=== PATIENT | male | born 1940 | race Caucasian/White ===

== ENCOUNTER → 2018-09-02 15:19 | Outpatient (CLI) | payer MEDICARE, SELFPAY ==
--- NOTE | 2018-09-02 | DI.RAD.S_ITS ---
PROCEDURE: XR KNEE RT 3V INDICATIONS: KNEE PAIN TECHNIQUE: 3 views of the knee were acquired. COMPARISON: None. FINDINGS: Bones: No fractures or dislocations. No suspicious bony lesions. There is severe right knee joint degeneration with disc narrowing, subchondral sclerosis and osteophyte formation, most pronounced in the medial femorotibial compartment and patellofemoral compartment. Soft tissues: Small joint effusion. No suspicious soft tissue calcifications. IMPRESSION: Severe degenerative joint disease. Dictated by: Leslye Lorenz M.D. on 09/02/2018 at 16:30 Approved by: Leslye Lorenz M.D. on 09/02/2018 at 16:31
--- NOTE | 2018-09-02 | DI.RAD.S_ITS ---
PROCEDURE: XR KNEE LT 3V INDICATIONS: KNEE PAIN TECHNIQUE: 3 views of the knee were acquired. COMPARISON: None. FINDINGS: Bones: No fractures or dislocations. No suspicious bony lesions. Severe knee joint degeneration, most pronounced in the medial femorotibial compartment. Soft tissues: Trace joint effusion. No suspicious soft tissue calcifications. IMPRESSION: Severe degenerative joint disease. Dictated by: Leslye Lorenz M.D. on 09/02/2018 at 16:31 Approved by: Leslye Lorenz M.D. on 09/02/2018 at 16:32
== END ==
PROVIDERS: PCP Internal Medicine; Visit Provider Internal Medicine
DX: M25.561 Pain in right knee (principal); M25.562 Pain in left knee; M17.0 Bilateral primary osteoarthritis of knee
CPT/HCPCS: 73562

== ENCOUNTER 2019-01-07 20:22 | Emergency (ER) | payer MEDICARE, SELFPAY ==
[2019-01-07 20:25] VITALS: BP 144/70; PULSE 55; RESP 20; TEMP 37.2; O2SAT 94
--- NOTE | 2019-01-07 21:02 | DI.RAD.S_ITS ---
PROCEDURE: XR TOE RT MIN 2V INDICATIONS: pain, swelling, redness 4TH DIGIT TECHNIQUE: 3 views of the 4th toe(s) acquired. COMPARISON: None. FINDINGS: Bones: No fractures or dislocations. There is bony erosion at the fourth distal and proximal interphalangeal joints consistent with gouty arthritis. There is generalized osteopenia. Soft tissues: No suspicious soft tissue densities. They show swelling of the fourth toe. IMPRESSION: 1. Gouty arthritis of the fourth toe. 2. Osteopenia. Dictated by: Leslye Lorenz M.D. on 01/07/2019 at 22:10 Approved by: Leslye Lorenz M.D. on 01/07/2019 at 22:13
--- NOTE | 2019-01-07 21:05 | ED_ITS ---
HPI - Extremity Problem General Chief complaint: Extremity Problem,Nontraumatic Stated complaint: pain and swelling both feet Time Seen by Provider: 01/07/19 20:40 Source: patient and family Mode of arrival: ambulatory Limitations: no limitations History of Present Illness HPI Narrative: 78-year-old male nonsmoker presents with his in the chief complaint of mild swelling of his bilateral lower extremities and a painful, red right 4th toe in the absence of injury. He had a similar episode a few weeks ago which seemed to respond well to Keflex but it has returned. He denies systemic findings such as chest pain or shortness of breath, exertional dyspnea or orthopnea. He denies fever, chills nor nausea or vomiting. He denies any specific or known injury, increased activity or new shoes. MD Complaint: extremity pain and extremity swelling Onset (ago): day(s) Pain Consistency: constant Location: right Quality: burning Radiation: none Relieving factors: nothing Exacerbating factors: nothing Associated symptoms: denies other symptoms Related Data Home Medications Medication Instructions Recorded Confirmed colchicine 0.6 mg PO QDAY #0 07/01/16 Previous Rx's Medication Instructions Recorded ACETAMINOPHEN 0 mg PO Q4HP PRN #30 07/10/16 enoxaparin [Lovenox] 40 mg SQ QDAY #7 07/10/16 hydrocodone-acetaminophen [[place]] 1 - 2 tab PO Q4HP PRN #60 tab 07/10/16 hydroxyzine pamoate 0 mg PO Q4HP PRN #30 cap 07/10/16 levothyroxine 25 mcg PO QDAY@0600 #30 07/10/16 doxycycline hyclate 100 mg PO BID #20 tab 01/07/19 indomethacin 50 mg PO TID PRN #20 cap 01/07/19 Allergies Allergy/AdvReac Type Severity Reaction Status Date / Time iodine [IODINE] Allergy Severe IV Unverified 10/07/17 13:08 CONTRAST-ALMOST QUIT BREATHING Review of Systems Constitutional Denies chills, Denies fever(s), Denies lethargy and Denies weakness Eyes Denies change in vision, Denies eye discharge, Denies irritation and Denies loss of vision ENT Ears, Nose, Mouth, and Throat: Denies change in voice, Denies neck pain and Denies sore throat Cardiovascular Denies chest pain, Denies irregular heart rhythm, Reports leg edema, Denies lightheadedness, Denies palpitations, Denies dyspnea, Denies dyspnea on exertion and Denies orthopnea Respiratory Denies cough, Denies dyspnea, Denies dyspnea on exertion and Denies wheezing Gastrointestinal Gastrointestinal: Denies abdominal pain, Denies change in bowel habits, Denies diarrhea, Denies nausea and Denies vomiting Genitourinary Denies hematuria, Denies flank pain, Denies urinary incontinence and Denies urinary urgency Musculoskeletal Denies neck pain Integumentary/Breasts Denies pruritus, Reports erythema, Denies rash, Reports skin pain, Reports skin swelling and Denies wounds Neurologic Denies confusion, Denies loss of vision and Denies weakness Psychiatric Denies anxiety, Denies confusion, Denies depression, Denies homicidal ideation and Denies suicidal ideation Endocrine Denies palpitations Hematologic/Lymphatic Denies easy bruising Allergic/Immunologic Denies wheezing PFSH Social History Smoking Status: Former smoker Social History Smoking Status: Former smoker Exam Narrative Exam Narrative: GEN: AOx3 and in mild distress EYES: Pupils are equal, round, and reactive to light and accommodation. Extraoccular muscles are intact bilaterally. There is no subconjunctival hemorrhage or exudate. CHEST: Lungs are clear to auscultation bilaterally and free of wheezes, rales, or rhonchi. Heart rate is regular rhythm, there are no murmurs, clicks, rubs, or gallops. There is no chest wall tenderness. ABD: Abdomen is soft and nontender. There is no guarding or rebound. Bowel sounds are normal in all 4 quadrants. There is no mass or organomegaly. EXT: Mild swelling with significant erythema and tenderness of R 4th toe. No drainage, no lymphangitis. No involvement of the foot Full painless ROM of all extremities with no loss of sensation or strength. SKIN: Redness, warmth and tenderness to right 4th toe consistent with cellulitis Initial Vital Signs Initial Vital Signs: Vital Signs Temperature 98.9 F 01/07/19 20:25 Pulse Rate 55 L 01/07/19 20:25 Respiratory Rate 20 01/07/19 20:25 Blood Pressure 144/70 H 01/07/19 20:25 Pulse Oximetry 94 01/07/19 20:25 Course Orders Ordered: ED Orders 07/12/19 21:02 XR toe RT min 2V Stat 01/07/19 21:15 B Type Natriuretic Peptide Stat Basic Metabolic Panel Stat C-Reactive Protein Quant Stat Complete Blood Count AUTO DIFF Stat Erythrocyte Sedimentation Rate Stat Uric Acid Stat Discontinued Medications Doxycycline Hyclate (Vibramycin) 100 mg PO NOW ONE Stop: 01/07/19 21:04 Last Admin: 01/07/19 21:25 Dose: 100 mg Vital Signs - 8 hr 01/07/19 23:01 Temperature 98.2 F Pulse Rate 50 L Respiratory Rate 16 Blood Pressure 137/50 L Pulse Oximetry 95 MDM - Extremity (Nontraumatic) Lab Data Result diagrams: 01/07/19 21:15 01/07/19 21:15 Lab Results 01/07/19 01/07/19 01/07/19 Range/Units 21:15 21:15 21:15 WBC 11.3 H (4.5-11.0) X10^3/uL RBC 4.77 (4.5-5.9) X10^6/uL Hgb 14.4 (13.5-17.5) g/dL Hct 42.5 (41-53) % MCV 89.2 (80-100) fL MCH 30.1 (26-34) PG MCHC 33.7 (30-36) % RDW 12.8 (11.6-14.8) % Plt Count 204 (150-400) X10^3/uL Neut % (Auto) 70.4 (50-75) % Lymph % (Auto) 20.1 L (25-40) % [place] % (Auto) 7.7 (3-14) % Eos % (Auto) 1.2 L (2-4) % Baso % (Auto) 0.6 (0-2) % Neut # (Auto) 7900 H (1456-6317) /uL Lymph # (Auto) 2300 (8568-7174) /uL [place] # (Auto) 900 (0-900) /uL Eos # (Auto) 100 (0-450) /uL Baso # (Auto) 100 (0-100) /uL ESR 18 H (0-15) MM/HR Sodium 142 (137-145) mmol/L Potassium 3.8 (3.4-5.1) mmol/L Chloride 107 (98-107) mmol/L Carbon Dioxide 24 (22-32) mmol/L BUN 18 (9-20) mg/dL Creatinine 1.20 (0.66-1.25) mg/dL Estimated GFR 58.9 L (>60) mL/min BUN/Creatinine Ratio 15.0 (6-22) Glucose 124 H (80-110) mg/dL Uric Acid 8.6 H (3.5-8.5) mg/dL Calcium 9.5 (8.4-10.2) mg/dL C-Reactive Protein 4.4 H (<1.0) mg/dL B-Natriuretic Peptide < 100 (<100) Imaging Data Toe Xray: Radiologist's impression: [address] [address] XRay Report Signed Patient: Gurpreet Newton LMR#: [id number] : 2Acct:[id number] Age/Sex: 78 / MDate of Service: 01/07/19 Loc: ED Accession Number: [id number] Procedure: XR toe RT min 2V Ordering Provider: Estevan Patton D.O. PROCEDURE: XR TOE RT MIN 2V INDICATIONS: pain, swelling, redness 4TH DIGIT TECHNIQUE: 3 views of the 4th toe(s) acquired. COMPARISON: None. FINDINGS: Bones: No fractures or dislocations. There is bony erosion at the fourth distal and proximal interphalangeal joints consistent with gouty arthritis. There is generalized osteopenia. Soft tissues: No suspicious soft tissue densities. They show swelling of the fourth toe. IMPRESSION: 1. Gouty arthritis of the fourth toe. 2. Osteopenia. Dictated by: Leslye Lorenz M.D. on 01/07/2019 at 22:10 Approved by: Leslye Lorenz M.D. on 01/07/2019 at 22:13 Discharge Plan Departure Patient Disposition: Home Clinical Impression: Cellulitis of fourth toe Qualifiers: Laterality: right Qualified Code(s): L03.031 - Cellulitis of right toe Gout Qualifiers: Gout site: toe Gout etiology: unspecified cause Chronicity: acute Laterality: right Qualified Code(s): M10.9 - Gout, unspecified Discharge Date/Time: 01/07/19 23:03 Interventions: ED Discharge Assessment Last Done: 01/07/19 23:01 Instructions: DI for Cellulitis -- Adult, DI for Gout Activity Restrictions/Additional Instructions: *You have been diagnosed with [cellulitis versus gouty arthritis of right 4th toe] *What to do: *Take medications as directed *Follow up with your primary care provider in 2-3 days, call for an appointment. Let them know you were seen in the Emergency Department and that we ask that you be seen in follow up *Return to ER if you should have any new, worsening or concerning symptoms, such as [ ] Prescriptions: New indomethacin 50 mg capsule 50 mg PO TID PRN (Reason: pain (scale score 7-10)) Qty: 20 RF: 0 doxycycline hyclate 100 mg tablet 100 mg PO BID Qty: 20 RF: 0 No Action colchicine 0.6 MG capsule 0.6 mg PO QDAY Qty: 0 RF: 0 ACETAMINOPHEN PO Q4HP PRNQty: 30 RF: 0 hydroxyzine pamoate 25 MG capsule PO Q4HP PRNQty: 30 RF: 0 enoxaparin [Lovenox] 40 MG/0.4 ML syringe 40 mg SQ QDAY Qty: 7 RF: 0 levothyroxine 25 MCG tablet 25 mcg PO QDAY@0600 Qty: 30 RF: 0 hydrocodone-acetaminophen [[place]] 5 MG/325 MG tablet 1 - 2 tab PO Q4HP PRNQty: 60 RF: 0 Referrals: Higinio Barrientos MD [Primary Care Provider] -
[2019-01-07 21:25] LABS: Add Manual Diff / Slide Review NO; Basophils Absolute Auto 100 /uL (0-100); Basophils Percent Auto 0.6 % (0-2); Eosinophils Absolute Auto 100 /uL (0-450); Eosinophils Percent Auto 1.2 % (2-4); Hematocrit 42.5 % (41-53); Hemoglobin 14.4 g/dL (13.5-17.5); Lymphocytes Absolute Auto 2300 /uL (1100-4500); Lymphocytes Percent Auto 20.1 % (25-40); Mean Corpuscular HGB Conc 33.7 % (30-36); Mean Corpuscular Hemoglobin 30.1 PG (26-34); Mean Corpuscular Volume 89.2 fL (80-100); Monocytes Absolute Auto 900 /uL (0-900); Monocytes Percent Auto 7.7 % (3-14); Neutrophils Absolute Auto 7900 /uL (1500-7000); Neutrophils Percent Auto 70.4 % (50-75); Platelet Count 204 X10^3/uL (150-400); Red Blood Cell Count 4.77 X10^6/uL (4.5-5.9); Red Cell Distribution Width 12.8 % (11.6-14.8); White Blood Cell Count 11.3 X10^3/uL (4.5-11.0)
[2019-01-07] MEDS: DOXYCYCLINE HYCLATE 100 MG TABLET PO (21:25)
[2019-01-07 21:36] LABS: Blood Urea Nitrogen 18 mg/dL (9-20); C-Reactive Protein Quant 4.4 mg/dL (<1.0); Calcium 9.5 mg/dL (8.4-10.2); Carbon Dioxide 24 mmol/L (22-32); Chloride 107 mmol/L (98-107); Estimated Glomerular Filt Rate 58.9 mL/min (>60); Glucose 124 mg/dL (80-110); HEMOLYSIS < 15 (0-50); Potassium 3.8 mmol/L (3.4-5.1); Sodium 142 mmol/L (137-145)
[2019-01-07 21:46] LABS: B Type Natriuretic Peptide < 100 (<100)
[2019-01-07 21:51] LABS: Erythrocyte Sedimentation Rate 18 MM/HR (0-15)
[2019-01-07 22:37] LABS: Uric Acid 8.6 mg/dL (3.5-8.5)
[2019-01-07 23:01] VITALS: BP 137/50; PULSE 50; RESP 16; TEMP 36.8; O2SAT 95
== END 2019-01-07 23:03 | disposition home or self-care (01) ==
PROVIDERS: Emergency Provider Emergency Medicine; PCP Internal Medicine
DX: L03.031 Cellulitis of right toe (principal); M10.9 Gout, unspecified
CPT/HCPCS: 36591; 73660; 80048; 83880; 84550; 85025; 85651; 86140; 99282; 99284

== ENCOUNTER → 2021-01-05 08:59 | Outpatient (CLI) | payer MEDICARE, SELFPAY ==
[2021-01-05 09:25] LABS: Add Manual Diff / Slide Review NO; Basophils Absolute Auto 0 /uL (0-100); Basophils Percent Auto 0.4 % (0-2); Eosinophils Absolute Auto 100 /uL (0-450); Eosinophils Percent Auto 1.2 % (2-4); Hematocrit 46.4 % (41-53); Hemoglobin 15.7 g/dL (13.5-17.5); Lymphocytes Absolute Auto 1600 /uL (1100-4500); Mean Corpuscular HGB Conc 33.8 % (30-36); Mean Corpuscular Hemoglobin 30.2 PG (26-34); Mean Corpuscular Volume 89.2 fL (80-100); Monocytes Absolute Auto 700 /uL (0-900); Neutrophils Absolute Auto 6600 /uL (1500-7000); Neutrophils Percent Auto 72.4 % (50-75); Platelet Count 239 X10^3/uL (150-400); Red Blood Cell Count 5.21 X10^6/uL (4.5-5.9); Red Cell Distribution Width 13.3 % (11.6-14.8); White Blood Cell Count 9.1 X10^3/uL (4.5-11.0)
--- NOTE | 2021-01-05 09:27 | DI.RAD.S_ITS ---
PROCEDURE: XR HAND RT MIN 3V INDICATIONS: joint pain and swelling. Gout versus a late is on the 5th metacarpophalangeal joint. TECHNIQUE: 3 views of the hand(s) acquired. COMPARISON: None. FINDINGS: Bones: In this patient with this given history, scrutiny is given to the 5th carpometacarpal joint. No significant abnormality can be seen at this site. No fractures or dislocations. Carpal bones are normally aligned. No suspicious bony lesions. Degenerative changes are seen throughout, which are most prominent involving the 1st carpometacarpal joint. Milder degenerative changes are seen elsewhere. The patient is unable to fully extend his fingers to be properly positioned for this study. Soft tissues: No suspicious soft tissue calcifications. IMPRESSION: Generalized degenerative changes, without a focal abnormality identified. Dictated by: Avtar Carvajal M.D. on 01/05/2021 at 9:06 Approved by: Avtar Carvajal M.D. on 01/05/2021 at 9:07
[2021-01-05 09:39] LABS: Alanine Aminotransferase 41 IU/L (<50); Albumin 4.8 g/dL (3.5-5.0); Albumin Globulin Ratio 1.5 (1.0-2.8); Alkaline Phosphatase 66 U/L (38-126); Aspartate Aminotransferase 42 IU/L (17-59); BUN Creatinine Ratio 23.4 (6-22); Bilirubin Total 0.4 mg/dL (0.2-1.3); Blood Urea Nitrogen 25 mg/dL (9-20); C-Reactive Protein Quant 0.6 mg/dL (<1.0); Calcium 10.1 mg/dL (8.4-10.2); Carbon Dioxide 21 mmol/L (22-32); Chloride 110 mmol/L (98-107); Estimated Glomerular Filt Rate > 60.0 mL/min (>60); Globulin 3.2 g/dL (1.7-4.1); Glucose 138 mg/dL (80-110); HEMOLYSIS < 15 (0-50); Potassium 4.3 mmol/L (3.4-5.1); Sodium 139 mmol/L (137-145); Uric Acid 9.3 mg/dL (3.5-8.5)
[2021-01-05 09:44] LABS: Erythrocyte Sedimentation Rate 3 MM/HR (0-15)
== END ==
LOC: LAB 09:02 → RAD 09:26
PROVIDERS: PCP Internal Medicine; Referring Provider Physician Assistant; Visit Provider Physician Assistant
DX: M25.541 Pain in joints of right hand; M25.441 Effusion, right hand
CPT/HCPCS: 36415; 73130; 80053; 84550; 85025; 85651; 86140

== ENCOUNTER → 2021-07-28 10:44 | Outpatient (CLI) | payer MEDICARE, SELFPAY ==
--- NOTE | 2021-07-28 10:50 | DI.RAD.S_ITS ---
PROCEDURE: XR ANKLE LT MIN 3V INDICATIONS: bilateral ankle pain x 5 days TECHNIQUE: 3 views of the ankle were acquired. COMPARISON: None. FINDINGS: Bones: No fractures or dislocations. Ankle mortise is normally aligned. No suspicious bony lesions. Moderate posterior and plantar calcaneal spur present. Soft tissues: No tibiotalar joint effusion. Achilles tendon appears normal. IMPRESSION: Calcaneal spurs. Otherwise unremarkable left ankle radiographs Approved by: Aric Singleton M.D. on 07/28/2021 at 10:53
--- NOTE | 2021-07-28 10:50 | DI.RAD.S_ITS ---
PROCEDURE: XR ANKLE RT MIN 3V INDICATIONS: bilateral ankle pain x 5 days TECHNIQUE: 3 views of the ankle were acquired. COMPARISON: None. FINDINGS: Bones: No fractures or dislocations. Ankle mortise is normally aligned. No suspicious bony lesions. Moderate plantar and posterior calcaneal spur noted. Soft tissues: No tibiotalar joint effusion. Achilles tendon appears normal. IMPRESSION: Calcaneal spurs. Otherwise unremarkable right ankle radiographs Approved by: Aric Singleton M.D. on 07/28/2021 at 10:51
== END ==
PROVIDERS: PCP Internal Medicine; Referring Provider Nurse Practitioner Critical Care Medicine; Visit Provider Nurse Practitioner Critical Care Medicine
DX: M25.571 Pain in right ankle and joints of right foot (principal); M25.572 Pain in left ankle and joints of left foot; M77.32 Calcaneal spur, left foot; M77.31 Calcaneal spur, right foot
CPT/HCPCS: 73610

== ENCOUNTER → 2022-10-08 15:16 | Outpatient (CLI) | payer MEDICARE, SELFPAY ==
[2022-10-08 16:06] LABS: Add Manual Diff / Slide Review NO; Basophils Absolute Auto 0 /uL (0-100); Basophils Percent Auto 0.7 % (0-2); Eosinophils Absolute Auto 300 /uL (0-450); Eosinophils Percent Auto 4.1 % (2-4); Hematocrit 43.7 % (41-53); Lymphocytes Absolute Auto 2700 /uL (1100-4500); Lymphocytes Percent Auto 36.8 % (25-40); Mean Corpuscular HGB Conc 34.2 % (30-36); Mean Corpuscular Hemoglobin 31.2 PG (26-34); Mean Corpuscular Volume 91.2 fL (80-100); Monocytes Absolute Auto 700 /uL (0-900); Monocytes Percent Auto 9.9 % (3-14); Neutrophils Absolute Auto 3500 /uL (1500-7000); Neutrophils Percent Auto 48.5 % (50-75); Platelet Count 248 X10^3/uL (150-400); Red Cell Distribution Width 14.4 % (11.6-14.8); White Blood Cell Count 7.3 X10^3/uL (4.5-11.0)
[2022-10-08 16:25] LABS: BUN Creatinine Ratio 21.8 (6-22); Blood Urea Nitrogen 22 mg/dL (9-20); Calcium 9.5 mg/dL (8.4-10.2); Carbon Dioxide 22 mmol/L (22-32); Chloride 109 mmol/L (98-107); Estimated Glomerular Filt Rate > 60 mL/min (>60); Glucose 97 mg/dL (80-110); HEMOLYSIS < 15 (0-50); Potassium 4.5 mmol/L (3.4-5.1); Sodium 141 mmol/L (137-145)
== END ==
PROVIDERS: PCP Internal Medicine; Referring Provider Orthopaedic Surgery; Visit Provider Orthopaedic Surgery
DX: Z01.818 Encounter for other preprocedural examination (principal); M25.562 Pain in left knee; Z01.812 Encounter for preprocedural laboratory examination
CPT/HCPCS: 36415; 80048; 85025; 93005; 93010

== ENCOUNTER 2022-10-29 08:16 | Day surgery (SDC) | payer MEDICARE, SELFPAY ==
[2022-10-22 08:50] VITALS: BMI 36.5
--- NOTE | 2022-10-29 06:00 | DI.RAD.S_ITS ---
PROCEDURE: XR KNEE LT 1TO2V INDICATIONS: TKA TECHNIQUE: 2 view(s) of the knee acquired. COMPARISON: [facility], CR, XR KNEE LT 3V, 09/02/2018, 15:36. FINDINGS: Bones: Patient is status post knee joint arthroplasty. Hardware components are in expected positions. Visualized bony structures are intact. Soft tissues: Overlying postoperative changes are noted. IMPRESSION: Status post left total knee arthroplasty. Expected postsurgical changes. No acute hardware complication seen. Dictated by: Rian Tolbert M.D. on 10/29/2022 at 12:45 Approved by: Rian Tolbert M.D. on 10/29/2022 at 12:46
[2022-10-29 09:05] VITALS: BMI 36.5
[2022-10-29 09:06] LABS: COVID19 -Nasal RAPID Negative (Negative)
[2022-10-29] MEDS: CELECOXIB 200 MG CAPSULE PO (09:24)
[2022-10-29] MEDS: LACTATED RINGERS 1,000 ML 42 ML IV (09:24)
[2022-10-29] MEDS: ACETAMINOPHEN 325 MG TABLET 975 MG PO (09:24)
[2022-10-29 09:27] VITALS: BP 171/72; PULSE 54; RESP 21; TEMP 36.4; O2SAT 97
--- NOTE | 2022-10-29 09:49 | PM.PREOP ---
Pre-operative Note COVID-19 COVID-19 status: Negative Result date/Date tested (Pos, Neg/Pending): 10/29/22 Interval Note History & Physical reviewed/Exam performed by Physician: Yes Changes to H&P: No
[2022-10-29] MEDS: TRANEXAMIC ACID 1,000 MG VIAL 2000 MG INJ ×2 (10:36→11:45)
[2022-10-29] MEDS: CEFAZOLIN 2 GM/100 ML PREMIX 100 ML IV (10:39)
--- NOTE | 2022-10-29 10:59 | SUR.OPER ---
Supine on padded OR bed. Pillow under head, arms secured on padded armboards <90 degree abduction. Safety belt across torso. Non-operative leg secured with tape over blanket over lower leg. Operative leg secured in DeMayo positioner. Foam padded brace at thigh of operative leg.
[2022-10-29] MEDS: MORPHINE 4 MG/ML INJ INJ (11:18)
[2022-10-29] MEDS: BUPIVACAINE LIPOSOME 266 MG/20 ML VIAL INJ (11:18)
[2022-10-29] MEDS: BUPIVACAINE 0.25% (PF) 60 ML, EPINEPHrine 0.3 MG INJ (11:50)
--- NOTE | 2022-10-29 12:08 | P.OP_ITS ---
Operative Date/Time/Diagnoses Date of procedure: 10/29/22 Time of procedure: 12:08 Pre-op diagnosis: Left knee osteoarthritis Post-op diagnosis: same Procedure & Clinicians Procedure: Left total knee replacement Same procedure as scheduled: Yes Indications: The patient has had progressively worsening left knee pain with radiographic changes consistent with arthritis. Non-operative management has failed and the patient has requested total knee replacement. The risks, benefits and alternatives to surgery were discussed with the patient prior to proceeding. Risks discussed included, but were not limited to, failure to relieve pain, stiffness, infection, nerve damage, deep venous thrombosis, pulmonary embolism, stroke, coma, heart attack, permanent paralysis and , as well as the potential need for eventual revision of the prosthetic. Surgeon: Cuco Fowler Stock Replenisher: Gaudencio Zaragoza Click Yes if Unassisted: No Anesthesia Type: General, Spinal and Local Operative Notes Findings: Severe tricompartmental osteoarthritis most obvious in the medial compartment. Closure Type: primary Specimen(s): none sent Prosthetic devices, grafts, tissues, transplants, or devices: Implants used in this procedure were manufactured by the [employer] and included the BCS II Journey total knee replacement with a size 8 cobalt chromium femur, a size 7 left non porous tibial base plate, a 9 mm cross- linked polyethylene tibial insert and a 38 mm oval Katelyn II patella. Applied: implant(s) Estimated Blood Loss (mL): 25 Blood products transfused: none Tourniquet time (min): 57 Procedure in detail: The patient was seen in the pre-operative area, where the left knee was identified as the operative site and this was marked with my initials. The patient received pre-operative antibiotics, and was taken to the operating room and placed on the operative table in the supine position. After satisfactory anesthesia, a hospital ward clerk out was performed. The left leg was encircled with a tourniquet about the proximal thigh, and the leg was prepared from the toes to the tourniquet with ChloroPrep in the usual fashion and draped through sterile drapes. The leg was elevated and exsanguinated with Eschmark bandage and the tourniquet inflated to 250 mmHg pressure. The knee was approached through an approximately 18 cm incision centered over the patella and carried into the knee through a medial parapatellar arthrotomy. The anterior osteophytes and soft tissues were removed. The rotational landmarks of [place]'s line and the transepicondylar axis were marked on the femur with electrocautery, and intramedullary guide holes for the femur and tibia were created. The distal femoral cut was made in 6 degrees of valgus using the intramedullary guide at the primary cut setting. The proximal tibial cut was then made using the intramedullary guide, taking 9 mm of bone off the less involved side. The extension gap was checked and the rotation of the femoral component confirmed with the gap balancing blocks. The anterior, posterior and chamfer cuts were then made. The posterior osteophytes and soft tissues were the n removed. The posterior capsule was injected with part of a mixture of 60 ml 0.25% Marcaine mixed with 20 ml Exparel and 4 mg of morphine for post-operative pain control. The remainder of this mixture was injected into the capsule and subcutaneous tissues during cement curing. The tibia was prepared with the rotation set by an extra medullary guide. Trial tibial and femoral components were then placed and the intercondylar notch cut through the femoral trial. Range of motion was 0-135 degrees, with good stability throughout the range. The patella was then cut to accommodate the patellar prosthetic. There was no need for a lateral release. The trials were then removed, and the femoral hole plugged with a bone plug. The bone was prepared with pulsatile lavage, and dried with a sponge. Cement was applied and the final prosthetics placed. Excess cement was removed during and after cement curing. After confirming there was no extruded cement posteriorly, the final tibial insert was placed. The knee was copiously irrigated and the tourniquet deflated. Hemostasis was obtained. The capsule was closed with interrupted # 2 polyester sutures. The subcutaneous layer was closed with 3-0 Vicryl, and the skin with a running 3-0 V-Lock suture and Dermabond. An Aquacel Ag dressing was applied and the patient was taken to recovery having tolerated the procedure well. The services of a skilled surgical appliance fitter were necessary during this procedure to provide exposure, positioning and retraction to protect vital structures. Without the assistance of Mr. Zaragoza, the procedure could not have gone forward in a safe, expedient fashion. Complications: none Post-operative Condition: stable Disposition: PACU Plan for aftercare: The patient will be maintained on a standard total knee replacement protocol with weight bearing as tolerated. The patient will receive aspirin and sequential compression devices for DVT prophylaxis. The patient will be discharged home when safe for the home environment.
[2022-10-29 12:14] VITALS: BP 134/59; PULSE 49; RESP 14; TEMP 36.3; O2SAT 90
[2022-10-29 12:20] VITALS: BP 131/60; PULSE 45; RESP 14; O2SAT 90
[2022-10-29 12:25] VITALS: BP 131/61; PULSE 51; RESP 18; O2SAT 90
[2022-10-29 12:30] VITALS: BP 138/65; PULSE 50; RESP 14; O2SAT 90
[2022-10-29 14:40] VITALS: BP 141/87; PULSE 74; RESP 18; TEMP 36.6; O2SAT 95
--- NOTE | 2022-10-29 15:02 | SUR.PHASEII ---
1445 Distal cms intact to LLE, pt amb ind with walker, denies pain or discomfort, states just a little sore, voiding pale yellow urine, dsg c/d/i
== END 2022-10-29 15:03 | disposition home or self-care (01) ==
LOC: OR 08:17 → AC 08:18
PROVIDERS: PCP Student in an Organized Health Care Education/Training Program; Referring Provider Orthopaedic Surgery; Visit Provider Orthopaedic Surgery
PROC: 0SRD0JZ Replacement of Left Knee Joint with Synthetic Substitute, Open Approach (ICD-10-PCS; CPT 27447; principal; 2022-10-29 10:30)
DX: M17.12 Unilateral primary osteoarthritis, left knee (principal); Z20.822 Contact with and (suspected) exposure to COVID-19; E78.5 Hyperlipidemia, unspecified; I10 Essential (primary) hypertension; E03.9 Hypothyroidism, unspecified
CPT/HCPCS: 27447; 73560; 87635; C1776; C9803; C9290; J0171; J0690; J1100; J2250; J2270; J2405; J2704; J3010

== ENCOUNTER 2022-11-01 11:18 | Inpatient (IN) | payer MEDICARE, SELFPAY ==
[2022-11-01] VITALS (12 sets, daily range): BP systolic 130–147; BP diastolic 63–86; PULSE 55–65; RESP 14–24; TEMP 36.2–37.3; O2SAT 91–96; BMI 36.4; BMI 35.8
--- NOTE | 2022-11-01 11:20 | DI.CT.S_ITS ---
PROCEDURE: CT HEAD/BRAIN WO CON INDICATIONS: Ataxia TECHNIQUE: Noncontrast 4.5 mm thick angled axial sections acquired from the foramen magnum to the vertex, with coronal and sagittal reformats. For radiation dose reduction, the following was used: automated exposure control, adjustment of mA and/or kV according to patient size. COMPARISON: None. FINDINGS: Image quality: Excellent. CSF spaces: Basal cisterns are patent. No extra-axial fluid collections. The ventricles are symmetric in size and shape. Brain: No intracranial bleeds or masses. There is cerebral volume loss for age, with resultant ventricular and sulcal prominence. Low-attenuation is present in the inferior left frontal lobe. This appears possibly related to prior infarction or trauma. Mild area of low attenuation is noted in the right parietal occipital lobe. There are periventricular and deep white matter chronic small vessel ischemic changes. There is intracranial internal carotid artery atherosclerosis. Skull and face: Calvarium and visualized facial bones appear intact, without suspicious lesions. Sinuses: Visualized sinuses and mastoids are clear. IMPRESSION: Hypoattenuation within the right parietal occipital lobe suspicious for subacute ischemia. No hemorrhage. [id number] atrophy and chronic microvascular ischemic changes. Dictated by: Ursula Quarles M.D. on 11/01/2022 at 12:07 Approved by: Ursula Quarles M.D. on 11/01/2022 at 12:11
[2022-11-01 11:35] LABS: Add Manual Diff / Slide Review NO; Basophils Absolute Auto 100 /uL (0-100); Basophils Percent Auto 0.5 % (0-2); Eosinophils Absolute Auto 0 /uL (0-450); Eosinophils Percent Auto 0.4 % (2-4); Hemoglobin 12.1 g/dL (13.5-17.5); Lymphocytes Absolute Auto 1500 /uL (1100-4500); Lymphocytes Percent Auto 12.3 % (25-40); Mean Corpuscular HGB Conc 33.7 % (30-36); Mean Corpuscular Hemoglobin 30.8 PG (26-34); Mean Corpuscular Volume 91.6 fL (80-100); Monocytes Absolute Auto 1900 /uL (0-900); Monocytes Percent Auto 14.7 % (3-14); Neutrophils Absolute Auto 9100 /uL (1500-7000); Neutrophils Percent Auto 72.1 % (50-75); Platelet Count 191 X10^3/uL (150-400); Red Blood Cell Count 3.93 X10^6/uL (4.5-5.9); Red Cell Distribution Width 14.3 % (11.6-14.8); White Blood Cell Count 12.6 X10^3/uL (4.5-11.0)
--- NOTE | 2022-11-01 11:39 | ED_ITS ---
HPI - Neuro Symptoms/Deficit General Chief Complaint: Neuro Symptoms/Deficit Stated Complaint: Headache, blurry vision, loss of balance Time Seen by Provider: 11/01/22 11:19 Source: patient, family (Sister) and EMS Mode of arrival: EMS Limitations: no limitations History of Present Illness HPI Narrative: Patient is an 82-year-old male. Is 3 days from a elective left total knee arthroplasty. He stated that the procedure went well. He was discharged home that same day. That evening he started to develop a headache. He states the headache has been consistent for the past 3 days. He did have some chest pain but that was a couple days ago that is completely resolved. No shortness of breath. No nausea vomiting. He stated that his pain has been fairly well- controlled. He has been trying to get up and move around per the instructions given to him by the orthopedic surgeon. He is not on anticoagulation. He states that this morning he was trying to get up out of his chair. He states that he slid onto the ground. He did not hit his head. No loss of consciousness. No injuries from the event. He states he is left knee is somewhat more sore after the event but he did not specifically felt like he hurt his knee. They contacted EMS to come out for a lift assist but while they were at the house the patient's sister who was at the house with the patient and who is also at bedside stated that for the past couple days he is had issues with vision and also seems to be ataxic and leaning to the left side. Patient thinks that the vision issues just started today but his sister states that she is noticed issues over the past couple days. On Anticoagulants: No Related Data Home Medications Medication Instructions Recorded Confirmed amlodipine 10 mg tablet 10 mg PO DAILY 01/05/21 10/29/22 ascorbate calcium (vitamin C) 500 240 mg PO DAILY 01/05/21 10/29/22 mg tablet cholecalciferol (vitamin D3) 25 25 mcg PO DAILY 01/05/21 10/29/22 mcg (1,000 unit) capsule ezetimibe 10 mg tablet 10 mg PO DAILY 01/05/21 10/29/22 spironolactone 25 mg tablet 37.5 mg PO DAILY 01/05/21 10/29/22 allopurinol 100 mg tablet 100 mg PO DAILY 10/22/22 10/29/22 colchicine 0.6 mg tablet 0.6 mg PO DAILY PRN Gout flare 10/22/22 10/22/22 labetalol 100 mg tablet 200 mg PO BID 10/22/22 10/29/22 levothyroxine 75 mcg tablet 75 mcg PO DAILY 10/22/22 10/29/22 Previous Rx's Medication Instructions Recorded acetaminophen 325 mg tablet 650 mg PO Q6H PRN Fever/Mild Pain 10/29/22 (1-3) #250 tabs aspirin 81 mg tablet,delayed 81 mg PO BID #84 tabs 10/29/22 release ibuprofen 600 mg tablet 600 mg PO Q6HR PRN Fever/Mild Pain 10/29/22 (1-3) #250 tabs oxycodone 5 mg tablet 5 mg PO Q4HR #40 tabs 10/29/22 Allergies Allergy/AdvReac Type Severity Reaction Status Date / Time iodine [IODINE] Allergy Severe IV Verified 10/29/22 09:01 CONTRAST-ALMOST QUIT BREATHING Review of Systems Review of Systems ROS Unobtainable: All systems reviewed & are unremarkable except as noted in HPI and below Hematologic/Lymphatic On Anticoagulants: No Patient History Medical History History of COVID-19 HLD (hyperlipidemia) Osteoarthritis Surgical History (Updated 10/22/22 @ 09:20 by Kaleigh Malik RN) H/O vasectomy History of total left hip replacement Hx of knee surgery Hx of tonsillectomy Social History household members: spouse Smoking Status: Former smoker alcohol intake: current Smoking Status: Former smoker alcohol intake frequency: a few times a week Substance Use Type: does not use Exam Initial Vital Signs Initial Vital Signs: Vital Signs Pulse Rate 58 L 11/01/22 11:23 Pulse Oximetry 95 11/01/22 11:23 Const General: cooperative, comfortable and No ill appearing HENMT Head: normal to inspection and normocephalic Face and sinus: normal facial exam Mouth: oral mucosae normal Eyes Pupils: PERRL EOM: EOM intact bilaterally Resp Effort & Inspection: normal respiratory effort Auscultation: clear to auscultation bilaterally Cardio Rate: regular rate Rhythm: regular rhythm GI Inspection: normal to inspection and non-distended Palpation: soft and No tender Skin Other: Left leg swollen but no signs of infection Neuro General: patient alert, patient awake, patient oriented x3 and moves all extremities Cognition: normal cognition Speech: speech normal Motor: muscle tone normal throughout (Difficult to assess left leg because of surgery) Extrem Other: Left leg swollen but no signs of infection. Patient does have limited range of motion of his left leg consistent with his stated recent surgery history Psych Appearance: grossly normal and well kempt Scores GCS [place] coma scale eye opening: Spontaneous J[place] coma scale verbal response: Orientated Jairon coma scale motor response: Obey commands Jairon coma scale total score: 15 NIH Stroke Scale Level of Conciousness: Alert, keenly responsive Ask month/age: Answers both questions correctly. Open/close eyes, close hand: Performs both tasks correctly Best gaze horizontal: Normal Visual dumont: Complete hemianopia Facial palsy: Normal symetrical movement Left arm drift: No drift for full 10 sec Right arm drift: No drift for full 10 sec Left leg drift: No drift for full 5 sec (Difficult because of recent surgery) Right leg drift: No drift for full 5 sec Limb ataxia: Absent (Could not obtain with left leg because of surgery) Sensory on face/arms/legs: Normal, no sensory loss Best language: No aphasia, normal Dysarthria: Normal Extinction or inattention: No abnormality Total NIH Stroke scale score: 2 Course Orders Ordered: ED Orders 11/01/22 11:20 CT head/brain wo con Stat EKG-12 Lead Stat 11/01/22 11:28 Acetaminophen Stat COVID19 -Nasal RAPID Stat Complete Blood Count AUTO DIFF Stat Comprehensive Metabolic Panel Stat Lipase Stat PTT Partial Thromboplastin Rufus Stat Prothrombin Time INR Stat Salicylate Stat Troponin & CK Cardiac Panel Stat Vital Signs Vital signs: Vital Signs - 8 hr 11/01/22 11:25 11/01/22 11:23 11/01/22 11:30 Temperature 98.1 F Pulse Rate 57 L 58 L 56 L Respiratory Rate 16 24 Blood Pressure 130/86 Pulse Oximetry 94 95 91 Oxygen Delivery Method Room Air 11/01/22 11:31 11/01/22 11:31 11/01/22 11:45 Temperature Pulse Rate 57 L Respiratory Rate 19 Blood Pressure 138/66 137/67 Pulse Oximetry 91 Oxygen Delivery Method 11/01/22 11:45 11/01/22 12:00 Temperature Pulse Rate 55 L 57 L Respiratory Rate 17 14 Blood Pressure Pulse Oximetry 95 93 Oxygen Delivery Method MDM - Neuro Symptoms/Deficit Lab Data Attestation: I reviewed the patient's lab results. 11/01/22 11:28 11/01/22 11:28 Labs: Lab Results 11/01/22 11/01/22 11/01/22 Range/Units 11:28 11:28 11:28 WBC 12.6 H (4.5-11.0) X10^3/uL RBC 3.93 L (4.5-5.9) X10^6/uL Hgb 12.1 L (13.5-17.5) g/dL Hct 36.0 L (41-53) % MCV 91.6 (80-100) fL MCH 30.8 (26-34) PG MCHC 33.7 (30-36) % RDW 14.3 (11.6-14.8) % Plt Count 191 (150-400) X10^3/uL Neut % (Auto) 72.1 (50-75) % Lymph % (Auto) 12.3 L (25-40) % [place] % (Auto) 14.7 H (3-14) % Eos % (Auto) 0.4 L (2-4) % Baso % (Auto) 0.5 (0-2) % Neut # (Auto) 9100 H (9627-6127) /uL Lymph # (Auto) 1500 (4084-5369) /uL [place] # (Auto) 1900 H (0-900) /uL Eos # (Auto) 0 (0-450) /uL Baso # (Auto) 100 (0-100) /uL PT 12.7 (10.1-12.7) SECONDS INR 1.1 (0.9-1.3) APTT 30 (26-36) SECONDS Sodium 135 L (137-145) mmol/L Potassium 4.5 (3.4-5.1) mmol/L Chloride 102 (98-107) mmol/L Carbon Dioxide 25 (22-32) mmol/L BUN 22 H (9-20) mg/dL Creatinine 1.06 (0.66-1.25) mg/dL Estimated GFR > 60 (>60) mL/min BUN/Creatinine Ratio 20.8 (6-22) Glucose 130 H (80-110) mg/dL Calcium 9.0 (8.4-10.2) mg/dL Total Bilirubin 0.9 (0.2-1.3) mg/dL AST 36 (17-59) IU/L ALT 36 (<50) IU/L Alkaline Phosphatase 61 (38-126) U/L Total Creatine Kinase 304 H (55-170) U/L CK-MB (CK-2) 2.39 H (<2.37) ng/mL CK-MB (CK-2) Rel Index 0.8 L (1.5-5.0) % Troponin I 0.014 (0.01-0.034) ng/mL Total Protein 7.0 (6.3-8.2) g/dL Albumin 3.8 (3.5-5.0) g/dL Globulin 3.2 (1.7-4.1) g/dL Albumin/Globulin Ratio 1.2 (1.0-2.8) Lipase 160 (23-300) U/L Salicylates < 1.0 (<20) mg/dL Acetaminophen < 10 (10-30) ug/mL SARS-CoV-2 (PCR) (Negative) 11/01/22 Range/Units 11:28 WBC (4.5-11.0) X10^3/uL RBC (4.5-5.9) X10^6/uL Hgb (13.5-17.5) g/dL Hct (41-53) % MCV (80-100) fL MCH (26-34) PG MCHC (30-36) % RDW (11.6-14.8) % Plt Count (150-400) X10^3/uL Neut % (Auto) (50-75) % Lymph % (Auto) (25-40) % [place] % (Auto) (3-14) % Eos % (Auto) (2-4) % Baso % (Auto) (0-2) % Neut # (Auto) (6760-4584) /uL Lymph # (Auto) (8197-0547) /uL [place] # (Auto) (0-900) /uL Eos # (Auto) (0-450) /uL Baso # (Auto) (0-100) /uL PT (10.1-12.7) SECONDS INR (0.9-1.3) APTT (26-36) SECONDS Sodium (137-145) mmol/L Potassium (3.4-5.1) mmol/L Chloride (98-107) mmol/L Carbon Dioxide (22-32) mmol/L BUN (9-20) mg/dL Creatinine (0.66-1.25) mg/dL Estimated GFR (>60) mL/min BUN/Creatinine Ratio (6-22) Glucose (80-110) mg/dL Calcium (8.4-10.2) mg/dL Total Bilirubin (0.2-1.3) mg/dL AST (17-59) IU/L ALT (<50) IU/L Alkaline Phosphatase (38-126) U/L Total Creatine Kinase (55-170) U/L CK-MB (CK-2) (<2.37) ng/mL CK-MB (CK-2) Rel Index (1.5-5.0) % Troponin I (0.01-0.034) ng/mL Total Protein (6.3-8.2) g/dL Albumin (3.5-5.0) g/dL Globulin (1.7-4.1) g/dL Albumin/Globulin Ratio (1.0-2.8) Lipase (23-300) U/L Salicylates (<20) mg/dL Acetaminophen (10-30) ug/mL SARS-CoV-2 (PCR) Negative (Negative) Imaging Data CT scan - head: Radiologist's Impression: PROCEDURE:? CT HEAD/BRAIN WO CON ? INDICATIONS:? Ataxia ? TECHNIQUE:? Noncontrast 4.5 mm thick angled axial sections acquired from the foramen magnum to the vertex, with coronal and sagittal reformats.? For radiation dose reduction, the following was used:? automated exposure control, adjustment of mA and/or kV according to patient size.? ? COMPARISON:? None. ? FINDINGS:? Image quality:? Excellent.? ? CSF spaces:? Basal cisterns are patent.? No extra-axial fluid collections.? The ventricles are symmetric in size and shape.? ? Brain:? No intracranial bleeds or masses.? There is cerebral volume loss for age, with resultant ventricular and sulcal prominence.? Low-attenuation is present in the inferior left frontal lobe.? This appears possibly related to prior infarction or trauma.? Mild area of low attenuation is noted in the right parietal occipital lobe.? There are periventricular and deep white matter chronic small vessel ischemic changes.? There is intracranial internal carotid artery atherosclerosis.? ? Skull and face:? Calvarium and visualized facial bones appear intact, without suspicious lesions.? ? Sinuses:? Visualized sinuses and mastoids are clear.? ? IMPRESSION:? ? Hypoattenuation within the right parietal occipital lobe suspicious for subacute ischemia.? No hemorrhage. ? Sscc-wk-[id number] atrophy and chronic microvascular ischemic changes.? ECG Data Attestation: I personally reviewed and interpreted this ECG as follows: Interpretation: Sinus bradycardia Ventricular rate of 54 Left axis deviation QRS 1-[address] T wave changes MDM Narrative Medical decision making narrative: Patient's symptoms potentially started 3 days ago. He does not specifically recognizes left visual field deficit. Patient is not a candidate for tPA nor catheter directed tPA or retrieval. CT scan concerning for CVA. His left knee shows no specific issues postoperatively. I did discuss these findings with the patient and his family at bedside. Also discussed the case with Dr. Gee hospitalist on-call today. We will admit for further evaluation treatment. Discharge Plan Departure Patient Disposition: Admitted As Inpatient Clinical Impression: Left homonymous hemianopsia, Acute cerebrovascular accident (CVA) Admit Date/Time: 11/01/22 12:27 Admit Provider: Neyda Gee
[2022-11-01 11:41] LABS: INR 1.1 (0.9-1.3); Prothrombin Time 12.7 SECONDS (10.1-12.7)
[2022-11-01 11:44] LABS: PTT Partial Thromboplastin Tim 30 SECONDS (26-36)
[2022-11-01 11:47] LABS: Acetaminophen < 10 ug/mL (10-30); Alanine Aminotransferase 36 IU/L (<50); Albumin 3.8 g/dL (3.5-5.0); Albumin Globulin Ratio 1.2 (1.0-2.8); Alkaline Phosphatase 61 U/L (38-126); Aspartate Aminotransferase 36 IU/L (17-59); BUN Creatinine Ratio 20.8 (6-22); Bilirubin Total 0.9 mg/dL (0.2-1.3); Blood Urea Nitrogen 22 mg/dL (9-20); Carbon Dioxide 25 mmol/L (22-32); Chloride 102 mmol/L (98-107); Creatine Kinase 304 U/L (55-170); Estimated Glomerular Filt Rate > 60 mL/min (>60); Globulin 3.2 g/dL (1.7-4.1); Glucose 130 mg/dL (80-110); HEMOLYSIS 18 (0-50); Lipase 160 U/L (23-300); Potassium 4.5 mmol/L (3.4-5.1); Salicylate < 1.0 mg/dL (<20); Sodium 135 mmol/L (137-145)
[2022-11-01 11:58] LABS: Troponin I 0.014 ng/mL (0.01-0.034)
[2022-11-01 12:01] LABS: CKMB % Relative Index 0.8 % (1.5-5.0); Creatine Kinase MB 2.39 ng/mL (<2.37)
[2022-11-01 12:21] LABS: COVID19 -Nasal RAPID Negative (Negative)
[2022-11-01] MEDS: ACETAMINOPHEN 325 MG TABLET 650 MG PO ×2 (14:52→21:29)
[2022-11-01] MEDS: HYDROMORPHONE 0.5 MG INJ SUBCUT (14:56)
--- NOTE | 2022-11-01 15:40 | PT.IIE ---
Surgical History (Last Updated 10/22/22 @ 09:20 by aKleigh Malik RN) H/O vasectomy History of total left hip replacement Hx of knee surgery Hx of tonsillectomy Medical History (Last Reviewed 11/01/22 @ 11:42 by Paulino Cloud DO) History of COVID-19 HLD (hyperlipidemia) Osteoarthritis Physical Therapy Inpatient Evaluation/Re-Eval M1 PT/OT-IP Prior Functional Status Start: 11/01/22 16:24 Freq: NEEDED Status: Active Protocol: Document 11/01/22 15:40 AB (Rec: 11/01/22 16:44 AB [id number]) Medical Review Prior Functional Status Medical History Reviewed Yes Communication able to make needs known; with slight confusion Mobility and Gait pt stated that he just had a L TKA last thursday but went home the same day and had been using a 4WW mod I for mobility. Prior to L TKA, pt was independent with all mobilities without AD Social History Household Members spouse Living Arrangements House Number of Floors (Floors) One Floor Number of Stairs To Enter/Railing? ramp to enter Home Environment High Toilet,Walk in Shower, Ramp Home Equipment Four Wheel Walker,Shower Seat with Backrest,Hand Held Shower ,Grab Bars Near Toilet Additional Social History Comment pt lives with his spouse but spouse is also disabled per pt and per son, pt's spouse is in SNF right now; currently, pt's sister from [place] is staying with him to assist him but will not be able to provide physical assistance; sister is using a SPC for mobility M2 PT-IP Current Condition Start: 11/01/22 16:24 Freq: NEEDED Status: Active Protocol: Document 11/01/22 15:40 AB (Rec: 11/01/22 16:44 AB [id number]) Physical Therapy Current Condition Current Condition Evaluation Date 11/01/22 Treatment Diagnosis CVA; s/p L TKA; difficulty in walking Onset Date 11/01/22 M3 PT-IP Subjective Start: 11/01/22 16:24 Freq: NEEDED Status: Active Protocol: Document 11/01/22 15:40 AB (Rec: 11/01/22 16:44 AB [id number]) Subjective Physical Therapy Visit Type Type Initial Evaluation Visit Start Time 15:40 Visit Stop Time 16:25 Total Visit Minutes 45 Number of INVENTORY CONTROL MANAGER Visits 0 Physical Therapy Visit Comments Patient Comments c/o severe H/A but agreed to move in room Therapy Pain Assessment Pain When Pain Assessed At Rest Pain Present Pain Present Pain Reported Location Head Intensity 6 Scale Used Numeric (0 - 10) Pain Management Techniques Modification of Treatment,Re- positioning,Timing of Activity with Medications Left Knee Intensity 5 Scale Used Numeric (0 - 10) Pain Management Techniques Apply Cold,Distraction, Elevation,Modification of Treatment,Re-positioning, Timing of Activity with Medications M4 PT-IP Mobility and Gait Start: 11/01/22 16:24 Freq: NEEDED Status: Active Protocol: Document 11/01/22 15:40 AB (Rec: 11/01/22 16:44 AB [id number]) PT-Bed Mobility Assessment Supine to Sit Supine to Sit Moderate Assistance,Head of Bed Elevated,Bedrails Sit to Supine Sit to Supine Maximum Assistance,Head of Bed Elevated,Bedrails PT-Transfer Assessment Sit to and From Stand Sit to and from Stand Maximum Assistance,1 Person Assistance,Use of Upper Extremities Equipment Transfer Assistive Device Gait Belt,Front Wheeled Walker Orthotic/Prosthetic Devices or Brace: No Comments Mobility Comments BP: 138/68 pt c/o severe headache and knee pain but agreed to do PT. completed supine to sit mod A and max cues. HOB elevated and pt used bed rail to assist . Noted pt has L sided inattention without using much of his L UE during mobility but able to touch L shoulder and knee with R hand when instructed. able to sit on EOB SBA. completed sit to stand max and max cues needing 3 attempts to complete. pt is impulsive and needs cues for safety and techniques. ambulated in room using FWW mod to max A and max cues ~ 20 ft. needs assistance with FWW as pt tends to lean more on R side resulting in FWW tilting needing assist to stabilize FWW. Also slight L knee buckling but pt able to control and needs tactile cues for quads activation. pt requested to go back to bed. completed sit to supine max A and max cues. used bed rail to assist. positioned pt in bed. cold pack provided. call light and table placed within reach. pt's son and sister in room and wanting to talk to the doctor and informed nurse. also, informed son and sister regarding pt's mobility level and SNF rehab recommendation at this time and both understood. Gait Assessment Gait Gait Assistance Required: Moderate Assistance,Maximum Assistance,1 Person Assist Distance (Feet) 20 Able to Maintain Weight Bearing Status Yes During Gait Assistive Devices Assistive Device Gait Belt,Front Wheeled Walker Orthotic/Prosthetic Devices or Brace: Yes Gait Deviations General Gait Pattern Antalgic,Decreased Stride Length,Decreased Feet Clearance,Step-to Gait,Wide Based Gait Factors Limiting Gait Function Factors Limiting Gait Function Decreased Activity Tolerance, Decreased Strength,Difficulty Following Directions,Limited Range of Motion,Pain,Poor Balance,Poor Safety Awareness PT-Balance Assessment Sitting Balance and Reactions Static Sitting Balance Ability Good Dynamic Sitting Balance Ability Fair Standing Balance and Reactions Static Standing Balance Ability Poor Dynamic Standing Balance Ability Poor Device Used FWW M5 PT-IP Objective Assessments Start: 11/01/22 16:24 Freq: NEEDED Status: Active Protocol: Document 11/01/22 15:40 AB (Rec: 11/01/22 16:44 AB [id number]) Orientation Orientation/Cognition Level of Alertness Confusional State Orientation Name Language Function Ability No Deficits Noted Safety Awareness Decreased Safety Awareness Memory Description Short Term Impaired Comments pt thought he was at home but was able to get reoriented Gross Range of Motion Lower Extremity ROM Assessment Left Impaired Impairments L knee flexion: ~ 50 deg with pain limiting ROM Strength Lower Extremity Strength Assessment Left Impaired Hip 3+/5 Knee 3+/5 Muscle Tone Muscle Tone WNL Yes M6 PT-IP Treatment Start: 11/01/22 16:24 Freq: NEEDED Status: Active Protocol: Document 11/01/22 15:40 AB (Rec: 11/01/22 16:44 AB [id number]) Physical Therapy Treatment Exercises Exercises Heel Slides Education Education Provided Safety M7 PT-IP Assessment and Plan Start: 11/01/22 16:24 Freq: NEEDED Status: Active Protocol: Document 11/01/22 15:40 AB (Rec: 11/01/22 16:44 AB [id number]) PT Summary Assessment and Plan Potential Rehabilitation Potential Fair Status of Condition at Evaluation Evolving Summary Impairments Pain,ROM,Strength,Balance, Coordination,Sensation,Tone, Cognition,Bed Mobility, Transfers,Gait,Activity Tolerance Assessment Summary Pt with recent L TKA ~ 3 days ago and went home after surgery. Pt admitted at this time r/o CVA. pt presents with L sided inattention and needing max A for sit to stand transfers and mod to max A for ambulation using FWW. pt is impulsive and with L sided inattention both affecting safety awareness and mobility assistance. pt does not have any assistance availlability at home due to spouse currently in SNF and pt's sister will not be able to provide physical assistance needed by pt due to her own physical limitations. Pt at this time will require SNF rehab. will continue to assess progress. Goals Bed Mobility Goal Standby Assistance Transfer Goal Contact Guard Assistance,Front Wheeled Walker Gait Goal Contact Guard Assistance,Front Wheel Walker Gait Distance 100 Other Goals improve bed mobility, transfers and ambulation ~ 200 ft mod I using 4WW Days to Meet Goals 10 Frequency of Treatment Frequency Of Treatment Once a Day Treatment Plan Physical Therapy Treatment Plan Bed Mobility Training,Transfer Training,Gait Training, Therapeutic Exercise,Balance Retraining,Post Op Education, Discharge Planning,Hot or Cold Pack,Neuromuscular Re-ed, Coordination Retraining,Manual Therapy Weight Bearing Status Weight Bearing Status Weight Bear as Tolerated Allowed Weight Bearing Amount (enter % LLE WBAT or #) (%) Recommendations To Nursing Amount of Assist Needed 1 Person Assist Discharge Recommendations PT Discharge Recommendations SNF Rehab Equipment Needed for Home Before FWW if going home and not safe Discharge with 4WW Transportation Needs at Discharge Wheelchair/Cabulance
--- NOTE | 2022-11-01 16:16 | DI.ECHO.S_ITS ---
[facility]---------+ [facility] +---------+ : : [address] : : : : [id number] : : : : Phone: [phone] Echocardiogram Report + + :Name: BARBARA RAYMUNDO Study Date: 11/02/2022 Height: 69 in : :[facility] ReadingLocation: Weight: 242 lb : : Gender: Male BSA: 2.2 m2 : :: 1940 Age: 82 yrs BP: 143/64 mmHg: :Reason For Study: CVA : :Ordering Physician: MONSE, : :SWATHI Performed By: Belen Monreal : :Referring: SWATHI SHEA : + + Interpretation Summary The ejection fraction is estimated to be 65-70%. Diastolic function could not be accurately assessed due to contradictory data. The left atrium is mildly dilated. There is moderate aortic stenosis. The right ventricle is grossly normal size. The right ventricular systolic function is normal. 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 There is mild tricuspid regurgitation. The right ventricular systolic pressure is estimated to be at least 24 mmHg based on an estimated right atrial pressure of 3 mm Hg. Procedure: A two-dimensional transthoracic echocardiogram with color flow and Doppler was performed. The study quality was technically difficult. There is no prior echocardiogram noted for this patient. The patient was in sinus rhythm with heart rates between 63-70 bpm during the exam. Left Ventricle: The left ventricle is normal in size and wall thickness. The ejection fraction is estimated to be 65-70%. Diastolic function could not be accurately assessed due to contradictory data. Right Ventricle: The right ventricle is not well visualized. The right ventricle is grossly normal size. The right ventricular systolic function is normal. Atria: The left atrium is mildly dilated. Right atrial size is normal. There is no Doppler evidence for an interatrial shunt. Mitral Valve: The mitral valve is normal in structure and function. There is trace mitral regurgitation. Aortic Valve: The aortic valve is trileaflet. The aortic valve is mildly calcified. There is moderate aortic stenosis. The peak aortic velocity is 2.9 m/sec. The aortic valve mean gradient is 22 mmHg. The calculated aortic valve area is 1.3 cm2. There is mild aortic regurgitation. Tricuspid Valve: The tricuspid valve is normal. 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 There is mild tricuspid regurgitation. The right ventricular systolic pressure is estimated to be at least 24 mmHg based on an estimated right atrial pressure of 3 mm Hg. Pulmonic Valve: The pulmonic valve is not well seen, but is grossly normal. There is no pulmonic valvular regurgitation. Great Vessels: The aortic root is not well visualized but is probably normal size. The ascending aorta could not be visualized. The IVC is of normal diameter and collapses greater than 50% with a sniff. This suggests a low right atrial pressure of 3 mm Hg. Pericardium/ Pleura There is no pericardial effusion. There is an anterior echo-free space consistent with a fat pad. There is no pleural effusion. MMode/2D Measurements & Calculations LVIDd: 5.1 cm LVOT diam: 2.0 cm LVIDs: 2.9 cm Ao Arch Diam (Prox Trans): 2.3 cm FS: 44.0 % IVSd: 0.95 cm LVPWd: 0.99 cm LV aguilar. diameter/BSA (cm/m^2): 2.3 LV sys. diameter/BSA (cm/m^2): 1.3 LA A2 area: 25.2 cm2 RA long axis: 5.5 cm LA A4 area: 22.0 cm2 RA area: 20.2 cm2 LA length (vol): 5.4 cm RA vol: 62.8 ml LA vol: 86.4 ml RA : 28.0 ml/m2 LA vol index: 38.6 ml/m2 IVC diam: 1.8 cm TAPSE: 2.3 cm Doppler Measurements & Calculations Ao V2 max: 290.6 cm/sec LVOT Max Karel: 124.2 cm/sec Ao V2 mean: 206.6 cm/sec LV V1 max P.2 mmHg Ao max P.4 mmHg LV V1 VTI: 27.2 cm Ao mean P.5 mmHg RAUL(I,D): 1.3 cm2 Ao V2 VTI: 64.3 cm RAUL(V,D): 1.3 cm2 sev ratio: 0.42 RAUL indexed to BSA (cm^2/m^2): 0.59 MV E max karel: 89.4 cm/sec TR max karel: 226.5 cm/sec MV A max karel: 145.9 cm/sec TR max P.5 mmHg MV E/A: 0.61 PA V2 max: 117.4 cm/sec Med Peak E' Karel: 5.9 cm/sec PA V2 mean: 82.9 cm/sec E/E' med: 15.2 PA mean P.1 mmHg Lat Peak E' Karel: 7.3 cm/sec PA pr(Accel): 29.3 mmHg E/E' lat: 12.2 E/e' average: 13.7 MV dec time: 0.28 sec SV(LVOT): 84.8 ml Reading Physician:02:29 PM
--- NOTE | 2022-11-01 16:40 | DI.MRI.S_ITS ---
PROCEDURE: MR HEAD/BRAIN WO CON INDICATIONS: Assess subacute CVA TECHNIQUE: Non-contrast axial T1 spin echo, axial T2 fast spin echo, sagittal and axial FLAIR, coronal T2 fast spin echo, axial gradient echo, axial diffusion and ADC through the brain. COMPARISON: Merged With [facility], CT, CT HEAD/BRAIN WO CON, 11/01/2022, 11:40. FINDINGS: Image quality: Excellent. CSF spaces: Ventricles appear symmetric in size and shape. Basal cisterns are patent. No extra-axial fluid collections. Brain: Restricted diffusion along the medial aspect of the right occipital lobe extending into the insular region consistent with ongoing ischemia. Corresponding T2/FLAIR hyperintensity consistent with edema. Sequela of remote infarct along the right frontal lobe. No intracranial bleeds or mass effects. There is cerebral volume loss for age. There are periventricular and deep white matter chronic small vessel ischemic changes. Brainstem appears normal. Skull and face: Calvarial bone marrow is normal in signal. Orbits are normal. Sinuses: Sinuses and mastoids are clear. IMPRESSION: Active ischemic stroke involving the right MOLD SHAKER territory. Sequela of remote right-sided DINA stroke. Dr. Pittman discussed the above findings with Dr. Cloud at 4:50 p.m. [place] time 11/01/2022. Dictated by: Yong Pittman M.D. on 11/01/2022 at 16:41 Approved by: Yong Pittman M.D. on 11/01/2022 at 16:49
--- NOTE | 2022-11-01 16:44 | P.HP_ITS ---
History of Present Illness History of Present Illness Date Patient Seen: 11/01/22 Chief complaint: Headache, blurry vision, loss of balance Narrative: alexa Newton is an 82-year-old male.? Is 3 days postop from a elective left total knee arthroplasty.? He stated that the procedure went well.? He was discharged home that same day.? That evening he started to develop a headache.? He states the headache has been consistent for the past 3 days.? He did have some chest pain but that was a couple days ago that is completely resolved.? No shortness of breath.? No nausea vomiting.? He stated that his pain has been fairly well-controlled.? He has been trying to get up and move around per the instructions given to him by the orthopedic surgeon.? He is not on anticoagulation.? He states that this morning he was trying to get up out of his chair.? He states that he slid onto the ground.? He did not hit his head.? No loss of consciousness.? No injuries from the event.? He states he is left knee is somewhat more sore after the event but he did not specifically felt like he hurt his knee.? They contacted EMS to come out for a lift assist but while they were at the house the patient's sister who was at the house with the patient and who is also was at bedside stated that for the past couple days he is had issues with vision and also seems to be ataxic and leaning to the left side.? Patient thinks that the vision issues just started today but his sister states that she is noticed issues over the past couple days. No fever or chills. No palpitations. No shortness of breath or wheezing. No cough. No abdominal pain constipation or diarrhea. Able to move all extremities volitionally. No neurological symptoms in the extremities. [facility] Medical History History of COVID-19 HLD (hyperlipidemia) Osteoarthritis Surgical History H/O vasectomy History of total left hip replacement Hx of knee surgery Hx of tonsillectomy Social History household members: spouse Smoking Status: Former smoker alcohol intake: current Meds Home Medications and Allergies Home Medications Medication Instructions Recorded Confirmed Type amlodipine 10 mg tablet 10 mg PO DAILY 01/05/21 11/01/22 History ascorbate calcium (vitamin C) 500 240 mg PO DAILY 01/05/21 11/01/22 History mg tablet cholecalciferol (vitamin D3) 25 25 mcg PO DAILY 01/05/21 11/01/22 History mcg (1,000 unit) capsule ezetimibe 10 mg tablet 10 mg PO DAILY 01/05/21 11/01/22 History spironolactone 25 mg tablet 37.5 mg PO DAILY 01/05/21 11/01/22 History allopurinol 100 mg tablet 100 mg PO DAILY 10/22/22 11/01/22 History colchicine 0.6 mg tablet 0.6 mg PO DAILY PRN Gout flare 10/22/22 11/01/22 History labetalol 100 mg tablet 200 mg PO BID 10/22/22 11/01/22 History levothyroxine 75 mcg tablet 75 mcg PO DAILY 10/22/22 11/01/22 History acetaminophen 325 mg tablet 650 mg PO Q6H PRN Fever/Mild Pain 10/29/22 11/01/22 Rx (1-3) #250 tabs aspirin 81 mg tablet,delayed 81 mg PO BID #84 tabs 10/29/22 11/01/22 Rx release ibuprofen 600 mg tablet 600 mg PO Q6HR PRN Fever/Mild Pain 10/29/22 11/01/22 Rx (1-3) #250 tabs oxycodone 5 mg tablet 5 mg PO Q4HR #40 tabs 10/29/22 11/01/22 Rx Allergies Allergy/AdvReac Type Severity Reaction Status Date / Time iodine [IODINE] Allergy Severe IV Verified 10/29/22 09:01 CONTRAST-ALMOST QUIT BREATHING Review of Systems Review of Systems Narrative: Fourteen system review was completed and pertinent findings are in the history of chief complaint. Exam Vital Signs (past 8 hours): - 11/01/22 11:25 11/01/22 11:23 11/01/22 11:30 Temperature 98.1 F Pulse Rate 57 L 58 L 56 L Respiratory Rate 16 24 Blood Pressure 130/86 Pulse Oximetry 94 95 91 Oxygen Delivery Method Room Air Oxygen Flow Rate 11/01/22 11:31 11/01/22 11:31 11/01/22 11:45 Temperature Pulse Rate 57 L Respiratory Rate 19 Blood Pressure 138/66 137/67 Pulse Oximetry 91 Oxygen Delivery Method Oxygen Flow Rate 11/01/22 11:45 11/01/22 12:00 11/01/22 12:30 Temperature Pulse Rate 55 L 57 L 57 L Respiratory Rate 17 14 20 Blood Pressure Pulse Oximetry 95 93 94 Oxygen Delivery Method Oxygen Flow Rate 11/01/22 13:00 11/01/22 12:38 11/01/22 13:40 Temperature 97.1 F L Pulse Rate 57 L 62 Respiratory Rate 18 17 Blood Pressure 143/67 H Pulse Oximetry 93 96 Oxygen Delivery Method Room Air Oxygen Flow Rate 0 Oxygen Delivery Method Room Air Oxygen Flow Rate 0 Narrative Exam Narrative: General: Patient alert and cooperative. Appears to be in no acute medical distress. HEENT: Pupils equal reactive to light. Extraocular movements normal. Has left hemianopia. Neck: Trachea midline. No palpable neck nodes. Cardiovascular: Heart sounds S1 and S2 with no extra sounds or murmurs. Per ipheral pulses equal bilaterally. Respiratory: Adequate air entry throughout the lung dumont no wheezes or crackles. Gastrointestinal: Abdomen is soft. Nontender. Bowel sounds normal. Musculoskeletal: Able to move all extremities volitionally. Stiffness and decreased range of motion left knee with recent surgery. Neuro: Normal sensation of all extremities. Left hemianopia. Skin: No lesions or rashes. Postoperative wound left knee with no acute findings. Psych: Normal mood and affect. Objective Labs 11/01/22 11:28 11/01/22 11:28 Labs: Laboratory Results - last 24 hr 11/01/22 11/01/22 11/01/22 11:28 11:28 11:28 WBC 12.6 H RBC 3.93 L Hgb 12.1 L Hct 36.0 L MCV 91.6 MCH 30.8 MCHC 33.7 RDW 14.3 Plt Count 191 Neut % (Auto) 72.1 Lymph % (Auto) 12.3 L Tompkins % (Auto) 14.7 H Eos % (Auto) 0.4 L Baso % (Auto) 0.5 Neut # (Auto) 9100 H Lymph # (Auto) 1500 Tompkins # (Auto) 1900 H Eos # (Auto) 0 Baso # (Auto) 100 PT 12.7 INR 1.1 APTT 30 Sodium 135 L Potassium 4.5 Chloride 102 Carbon Dioxide 25 BUN 22 H Creatinine 1.06 Estimated GFR > 60 BUN/Creatinine Ratio 20.8 Glucose 130 H Calcium 9.0 Total Bilirubin 0.9 AST 36 ALT 36 Alkaline Phosphatase 61 Total Creatine Kinase 304 H CK-MB (CK-2) 2.39 H CK-MB (CK-2) Rel Index 0.8 L Troponin I 0.014 Total Protein 7.0 Albumin 3.8 Globulin 3.2 Albumin/Globulin Ratio 1.2 Lipase 160 Salicylates < 1.0 Acetaminophen < 10 SARS-CoV-2 (PCR) 11/01/22 11:28 WBC RBC Hgb Hct MCV MCH MCHC RDW Plt Count Neut % (Auto) Lymph % (Auto) Tompkins % (Auto) Eos % (Auto) Baso % (Auto) Neut # (Auto) Lymph # (Auto) Tompkins # (Auto) Eos # (Auto) Baso # (Auto) PT INR APTT Sodium Potassium Chloride Carbon Dioxide BUN Creatinine Estimated GFR BUN/Creatinine Ratio Glucose Calcium Total Bilirubin AST ALT Alkaline Phosphatase Total Creatine Kinase CK-MB (CK-2) CK-MB (CK-2) Rel Index Troponin I Total Protein Albumin Globulin Albumin/Globulin Ratio Lipase Salicylates Acetaminophen SARS-CoV-2 (PCR) Negative Assessment & Plan Assessment & Plan narrative: 1. Subacute stroke. CT of the head demonstrates right parietal occipital ischemic lesion consistent with patient's clinical findings. MRI for confirmation. Clopidogrel and aspirin. Carotid ultrasound, echocardiogram, physical therapy, occupational therapy, speech therapy. Patient is NIHSS score of 2. 2. Left hemianopia. Acute and consistent with subacute stroke. 3. Postoperative left knee total arthroplasty. Physical therapy. Pain control. 4. Hypertension. Patient has passed the time for permissive hypertension post acute stroke. Continue to manage with the patient's regular regimen of medication and try to have systolic blood pressure less than 140. 5. Gout. Maintain patient's regular medication. 6. Hypothyroidism. Continue replacement with levothyroxine 75 mcg daily. Measure TSH, free T3 and free T4. Due to the patient's diagnosis and severity, hospitalization is expected to be more than 2 midnight, patient will be admitted as an inpatient.. All avenues were used to determine the patient's home medications and reconcile these in order to order for inpatient care. Information in regards to the patient's history were obtain both from the patient, patient's family and from the ER physician during the admission process. Code status: On discussion with the patient, full code Substitute decision maker: Son Clyde Newton, he is also POA DVT prophylaxis: Enoxaparin 40 mg subQ daily COVID status: Negative test, November 01, 2022. Scores NIHSS Level of Conciousness: Alert, keenly responsive Ask month/age: Answers both questions correctly. Open/close eyes, close hand: Performs both tasks correctly Best gaze horizontal: Normal Visual dumont: Complete hemianopia Facial palsy: Normal symetrical movement Left arm drift: No drift for full 10 sec Right arm drift: No drift for full 10 sec Left leg drift: No drift for full 5 sec Right leg drift: No drift for full 5 sec Sensory on face/arms/legs: Normal, no sensory loss Best language: No aphasia, normal Dysarthria: Normal Extinction or inattention: No abnormality Quality VTE Deep Vein Thrombosis/Pulmonary Embolism Present on Admission: No
[2022-11-01] MEDS: ENOXAPARIN 40 MG/0.4 ML SYRINGE SUBCUT (17:35)
[2022-11-01] MEDS: CLOPIDOGREL 75 MG TABLET 300 MG PO (17:39)
[2022-11-01] MEDS: ATORVASTATIN 20 MG TABLET 80 MG PO (21:29)
[2022-11-01] MEDS: LABETALOL 100 MG TABLET 200 MG PO (21:29)
[2022-11-02] VITALS (10 sets, daily range): BP systolic 130–149; BP diastolic 52–75; PULSE 61–96; RESP 17–20; TEMP 36.1–38.3; O2SAT 94–97; BMI 35.8
[2022-11-02] MEDS: LEVOTHYROXINE 75 MCG TABLET PO (05:40)
[2022-11-02 06:35] LABS: Add Manual Diff / Slide Review NO; Basophils Absolute Auto 0 /uL (0-100); Basophils Percent Auto 0.4 % (0-2); Eosinophils Absolute Auto 100 /uL (0-450); Eosinophils Percent Auto 1.1 % (2-4); Hematocrit 34.3 % (41-53); Hemoglobin 11.8 g/dL (13.5-17.5); Lymphocytes Absolute Auto 1700 /uL (1100-4500); Lymphocytes Percent Auto 18.1 % (25-40); Mean Corpuscular HGB Conc 34.5 % (30-36); Mean Corpuscular Hemoglobin 31.4 PG (26-34); Mean Corpuscular Volume 90.9 fL (80-100); Monocytes Absolute Auto 700 /uL (0-900); Neutrophils Absolute Auto 7000 /uL (1500-7000); Neutrophils Percent Auto 73.4 % (50-75); Platelet Count 203 X10^3/uL (150-400); Red Blood Cell Count 3.77 X10^6/uL (4.5-5.9); Red Cell Distribution Width 14.3 % (11.6-14.8); White Blood Cell Count 9.5 X10^3/uL (4.5-11.0)
[2022-11-02 06:44] LABS: Cholesterol 130 mg/dL (140-199); Creatine Kinase 195 U/L (55-170); HDL Cholesterol 39 mg/dL (40-60); LDL Cholesterol Calculated 62 mg/dL (<100); Triglycerides 145 mg/dL (35-150)
[2022-11-02 06:45] LABS: BUN Creatinine Ratio 21.6 (6-22); Blood Urea Nitrogen 22 mg/dL (9-20); Calcium 8.7 mg/dL (8.4-10.2); Carbon Dioxide 25 mmol/L (22-32); Chloride 103 mmol/L (98-107); Estimated Glomerular Filt Rate > 60 mL/min (>60); Glucose 178 mg/dL (80-110); HEMOLYSIS < 15 (0-50); Potassium 4.1 mmol/L (3.4-5.1); Sodium 134 mmol/L (137-145)
[2022-11-02 06:55] LABS: Free T3, Triiodothyronine Free 2.99 pg/mL (2.77-5.27); Free T4, Direct Thyroxine 0.97 ng/dL (0.78-2.19)
[2022-11-02 07:09] LABS: Thyroid Stimulating Hormone 3.82 uIU/mL (0.47-4.68)
[2022-11-02] MEDS: LABETALOL 100 MG TABLET 200 MG PO ×2 (08:18→20:55)
[2022-11-02] MEDS: allopurinoL 100 MG TABLET PO (08:18)
[2022-11-02] MEDS: ASCORBIC ACID 500 MG TABLET 250 MG PO (08:20)
[2022-11-02] MEDS: ENOXAPARIN 40 MG/0.4 ML SYRINGE SUBCUT (08:21)
[2022-11-02] MEDS: ASPIRIN EC 81 MG TABLET PO (08:22)
[2022-11-02] MEDS: EZETIMIBE 10 MG TABLET PO (08:22)
[2022-11-02] MEDS: CLOPIDOGREL 75 MG TABLET PO (08:22)
[2022-11-02] MEDS: SPIRONOLACTONE 25 MG TABLET 37.5 MG PO (08:24)
[2022-11-02] MEDS: CHOLECALCIFEROL (VITAMIN D3) 1,000 UNIT TABLET 1000 UNIT PO (08:25)
[2022-11-02] MEDS: AMLODIPINE 5 MG TABLET 10 MG PO (08:25)
--- NOTE | 2022-11-02 08:29 | PC.NURSE ---
Addendum entered by Beth Holliday R.N. 11/02/22 13:53: pt c/o left knee pain 5/10 pod #4 and Temp 99.5 medicated with tylenol 650 and percolone 5mg po. family in room. Original Note: Pt up in chair for breakfast no change in neuro checks-except vision changes since admit dr melton here= pt denies pain, does appear restless fidgeting in chair. vss
--- NOTE | 2022-11-02 08:30 | P.PN_ITS ---
Subjective Subjective Interval history: Patient does not have any specific new complaints today. Per physical therapy assessment yesterday, the patient likely will need SNF due to decreased mobility and impulsivity affecting patient's function. The impulsivity likely comes from the subacute stroke. Patient himself is more aware of his visual deficit currently but can not describe accurately just knows that there is areas that he can not see well. Exam Vital Signs (past 8 hours): - 11/02/22 00:34 11/02/22 03:27 11/02/22 08:18 Temperature 98.8 F Pulse Rate 65 61 96 H Respiratory Rate 17 Blood Pressure 147/63 H 149/64 H 145/75 H Pulse Oximetry 94 Oxygen Flow Rate 0 Oxygen Delivery Method Room Air Oxygen Flow Rate 0 Narrative Exam Narrative: General:? Patient alert and cooperative.? Appears to be in no acute medical distress. Sitting up in his chair. HEENT:? Pupils equal reactive to light.? Extraocular movements normal.? Has left hemianopia. Neck:? Trachea midline.? No palpable neck nodes. Cardiovascular:? Heart sounds S1 and S2 with no extra sounds or murmurs.? Peripheral pulses equal bilaterally. Respiratory:? Adequate air entry throughout the lung dumont no wheezes or crackles. Gastrointestinal:? Abdomen is soft.? Nontender.? Bowel sounds normal.? Musculoskeletal:? Able to move all extremities volitionally.? Stiffness and decreased range of motion left knee with recent surgery. Neuro:? Normal sensation of all extremities.? Left hemianopia. Skin:? No lesions or rashes.? Postoperative wound left knee with no acute findings. Psych:? Normal mood and affect. Objective Labs 11/02/22 05:56 11/02/22 05:56 Labs: Laboratory Results - last 24 hr 11/01/22 11/01/22 11/01/22 11:28 11:28 11:28 WBC 12.6 H RBC 3.93 L Hgb 12.1 L Hct 36.0 L MCV 91.6 MCH 30.8 MCHC 33.7 RDW 14.3 Plt Count 191 Neut % (Auto) 72.1 Lymph % (Auto) 12.3 L Porter % (Auto) 14.7 H Eos % (Auto) 0.4 L Baso % (Auto) 0.5 Neut # (Auto) 9100 H Lymph # (Auto) 1500 Porter # (Auto) 1900 H Eos # (Auto) 0 Baso # (Auto) 100 PT 12.7 INR 1.1 APTT 30 Sodium 135 L Potassium 4.5 Chloride 102 Carbon Dioxide 25 BUN 22 H Creatinine 1.06 Estimated GFR > 60 BUN/Creatinine Ratio 20.8 Glucose 130 H Calcium 9.0 Total Bilirubin 0.9 AST 36 ALT 36 Alkaline Phosphatase 61 Total Creatine Kinase 304 H CK-MB (CK-2) 2.39 H CK-MB (CK-2) Rel Index 0.8 L Troponin I 0.014 Total Protein 7.0 Albumin 3.8 Globulin 3.2 Albumin/Globulin Ratio 1.2 Triglycerides Cholesterol LDL Cholesterol, Calc HDL Cholesterol Lipase 160 TSH Free T4 Free T3 Salicylates < 1.0 Acetaminophen < 10 SARS-CoV-2 (PCR) 11/01/22 11/02/22 11/02/22 11:28 05:56 05:56 WBC 9.5 RBC 3.77 L Hgb 11.8 L Hct 34.3 L MCV 90.9 MCH 31.4 MCHC 34.5 RDW 14.3 Plt Count 203 Neut % (Auto) 73.4 Lymph % (Auto) 18.1 L Porter % (Auto) 7.0 Eos % (Auto) 1.1 L Baso % (Auto) 0.4 Neut # (Auto) 7000 Lymph # (Auto) 1700 Porter # (Auto) 700 Eos # (Auto) 100 Baso # (Auto) 0 PT INR APTT Sodium 134 L Potassium 4.1 Chloride 103 Carbon Dioxide 25 BUN 22 H Creatinine 1.02 Estimated GFR > 60 BUN/Creatinine Ratio 21.6 Glucose 178 H Calcium 8.7 Total Bilirubin AST ALT Alkaline Phosphatase Total Creatine Kinase CK-MB (CK-2) CK-MB (CK-2) Rel Index Troponin I Total Protein Albumin Globulin Albumin/Globulin Ratio Triglycerides Cholesterol LDL Cholesterol, Calc HDL Cholesterol Lipase TSH Free T4 Free T3 Salicylates Acetaminophen SARS-CoV-2 (PCR) Negative 11/02/22 11/02/22 11/02/22 05:56 05:56 05:56 WBC RBC Hgb Hct MCV MCH MCHC RDW Plt Count Neut % (Auto) Lymph % (Auto) Porter % (Auto) Eos % (Auto) Baso % (Auto) Neut # (Auto) Lymph # (Auto) Porter # (Auto) Eos # (Auto) Baso # (Auto) PT INR APTT Sodium Potassium Chloride Carbon Dioxide BUN Creatinine Estimated GFR BUN/Creatinine Ratio Glucose Calcium Total Bilirubin AST ALT Alkaline Phosphatase Total Creatine Kinase 195 H CK-MB (CK-2) CK-MB (CK-2) Rel Index Troponin I Total Protein Albumin Globulin Albumin/Globulin Ratio Triglycerides 145 Cholesterol 130 L LDL Cholesterol, Calc 62 HDL Cholesterol 39 L Lipase TSH 3.82 Free T4 0.97 Free T3 2.99 Salicylates Acetaminophen SARS-CoV-2 (PCR) PFSH Medical History History of COVID-19 HLD (hyperlipidemia) Osteoarthritis Surgical History H/O vasectomy History of total left hip replacement Hx of knee surgery Hx of tonsillectomy Social History household members: spouse Smoking Status: Former smoker alcohol intake: current Assessment & Plan Assessment & Plan narrative: 1. Subacute stroke.? CT of the head demonstrates right parietal occipital ischemic lesion consistent with patient's clinical findings.? MRI for confirmation -completed acute MCA area ischemic CVA subacute.? On MRI, also no donna remote DINA CVA. Patient not aware of any previous stroke however. Clopidogrel and aspirin, continue.? Carotid ultrasound pending, echocardiogram pending, physical therapy continue, occupational therapy, speech therapy.? Patient had NIHSS score of 2 on presentation. Lipid panel shows LDL of 130 today. Per physical therapy, patient will likely need SNF. 2. Left hemianopia persistent and patient becoming more aware of its existence.? Acute and consistent with subacute stroke. 3. Postoperative left knee total arthroplasty.? Physical therapy.? Pain control. 4. Hypertension.? Patient has passed the time for permissive hypertension post acute stroke.? Continue to manage with the patient's regular regimen of medication and try to have systolic blood pressure less than 140. 5. Gout.? Maintain patient's regular medication. 6. Hypothyroidism.? Continue replacement with levothyroxine 75 mcg daily.? Measured TSH, free T3 and free T4 -all within normal limits. 7. Post CVA lipid management. Continue with atorvastatin 80 mg daily. Code status:? On discussion with the patient, full code Substitute decision maker:? Son Clyde Newton, he is also POA DVT prophylaxis:? Enoxaparin 40 mg subQ daily Quality VTE Deep Vein Thrombosis/Pulmonary Embolism Present on Admission: No
--- NOTE | 2022-11-02 10:00 | DI.US.S_ITS ---
PROCEDURE: US CAROTID DOPPLER BI INDICATIONS: Subacute CVA TECHNIQUE: Color and pulse Doppler interrogation was performed of both carotid systems, with image documentation and velocity measurements. COMPARISON: None. FINDINGS: Stenosis calculations are based on SRU (Society of Radiologists in Ultrasound) criteria. Right side: Brachial blood pressure: 142/55 mm Hg. Common carotid artery peak systolic velocity: 80 cm/sec. Internal carotid artery peak systolic velocity: 85 cm/sec. Internal carotid artery end diastolic velocity: 15 cm/sec. External carotid artery peak systolic velocity: 122 cm/sec. ICA/CCA peak systolic ratio: 1.1 . Mccartney scale imaging description: Moderate plaque at the bifurcation Percent internal carotid artery stenosis: Less than 50% . Vertebral artery: Flow direction is antegrade. Left side: Brachial blood pressure: 143/64 mm Hg. Common carotid artery peak systolic velocity: 76 cm/sec. Internal carotid artery peak systolic velocity: 97 cm/sec. Internal carotid artery end diastolic velocity: 34 cm/sec. External carotid artery peak systolic velocity: 194 cm/sec. ICA/CCA peak systolic ratio: 1.3 . Mccartney scale imaging description: Mild to moderate plaque at the bifurcation Percent internal carotid artery stenosis: Less than 50% . Vertebral artery: Flow direction is antegrade. IMPRESSION: Less than 50% stenosis of the internal carotid arteries bilaterally. Dictated by: Ursula Quarles M.D. on 11/02/2022 at 11:05 Approved by: Ursula Quarles M.D. on 11/02/2022 at 11:06
--- NOTE | 2022-11-02 11:13 | CM.DANOTE ---
Addendum entered by MIGUEL ÁNGEL Burns 11/02/22 14:36: ADD: SW met bedside with pt, sister Lauren, and son/DPOA Clyde ([phone]) and explained role and they confirm preference is [facility] since spouse is there but agreeable to [facility] as backup. SW discussed Medicare coverage at SNF and criteria. Son states he is working on a assisted plan of likely having pt and spouse move to [facility] into his and his 's ADA accessible house and help assist them as needed. SW encouraged him to reach out to [facility] for additional resources as needed. Son very appreciative and sister confirms she plans to return to [place] mid week but will be bedside the next day or two. Son appreciates close communication and updates. BF Addendum entered by MIGUEL ÁNGEL Burns 11/02/22 13:49: ADD: Per RN, son/DPIRVING bedside and lives on [address] and wanting to confirm pt will go to [facility] at d/c. SW updated that referral was faxed and likely will not hear confirmation until tomorrow Mon as no one answering the admissions cell phone. RN kindly providing update to son as well. BF Original Note: Patient is an 82 yo male READMIT on 11/01/22 for Confusion/Vision. Pt has [facility] and [employer] for insurance and his PCP is Gareth Aguilar. EMR was reviewed. Per , pt is post op day [address] [address] [facility] and was same day surgery and discharged home with outpt PT. Pt now with subacute CVA. Per PT, recommending SNF as pt having residual vision issues, impulsivity, needing cueing and assist and not safe for home at this time and could benefit from rehab. Per , pt requesting SNF at [facility] as his spouse is currently there getting rehab as well. SW attempted to meet bedside with pt but getting bedside imaging. SW made initial referral to [facility] to review and PASRR done. Plan: SW to attempt to meet bedside with pt later today to confirm [facility] referral and back up SNF options and discuss further with PT/OT/ST tomorrow if pt might also benefit from Acute Inpt Rehab. 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 Yes Advance Directives on File Yes History Provided By Patient,Family Member,Medical Record Has Patient been admitted in last 30 Yes days? Comment Post op day 4 LTKA with d/c home and now return with CVA Prior Living Arrangements House Household Members spouse Type of transporation used prior to Drives own vehicle admit Independent with ADL's Yes Is patient alert and oriented? Yes Caregiver for Another Yes: spouse somewhat disabled Community Services used prior to Physical Therapy admission: DME Already Rented / Owned [facility] / Walker Patient/Family Preference [facility] Facility Barriers to Discharge No Discharge Plan [facility] Facility Transportation Arrangement Likely facility van Referrals Initiated [facility] If patient plan is SNF: Has PASSR been Yes completed? Medicare Choice List Provided Yes Medicare choice list reviewed on patient electronic tablet with SNF/HH Preference [facility], spouse is there currently Has Agency SNF been contacted Yes Whiteboard Updated in Patient Room with Yes name and ext. # of Brazing Machine Operator Helper Review Status In Process Please Provide Date Initial DC 11/02/22 Assessment Was Performed Next Review Type Continued Stay Review
--- NOTE | 2022-11-02 11:50 | PT.IPTN ---
Current Diagnoses Cerebral infarction, unspecified (11/01/22) Physical Therapy Treatment Note M2 PT-IP Current Condition Start: 11/01/22 16:24 Freq: NEEDED Status: Active Protocol: Document 11/01/22 15:40 AB (Rec: 11/01/22 16:44 AB [id number]) Physical Therapy Current Condition Current Condition Evaluation Date 11/01/22 Treatment Diagnosis CVA; s/p L TKA; difficulty in walking Onset Date 11/01/22 M3 PT-IP Subjective Start: 11/01/22 16:24 Freq: NEEDED Status: Active Protocol: Document 11/02/22 11:35 KS (Rec: 11/02/22 12:18 KS [id number]) Subjective Physical Therapy Visit Type Type Treatment Note Visit Start Time 11:35 Visit Stop Time 11:50 Total Visit Minutes 15 Number of CUTTER BARREL DRUM Visits 1 Physical Therapy Visit Comments Patient Comments Agreeable to ambulate to chair Therapy Pain Assessment Pain When Pain Assessed During Mobility Pain Present Pain Present Pain Reported Location Left Knee Scale Used not quantified - with movement Pain Management Techniques Distraction,Modification of Treatment,Re-positioning M4 PT-IP Mobility and Gait Start: 11/01/22 16:24 Freq: NEEDED Status: Active Protocol: Document 11/02/22 11:35 KS (Rec: 11/02/22 12:18 KS [id number]) PT-Bed Mobility Assessment Rolling Type of Rolling Log Rolling,Roll to Right Level of Assist Minimal Assistance Supine to Sit Supine to Sit Minimal Assistance,1 Person Assistance,Bedrails Scooting Scooting to Edge of Bed Minimal Assistance PT-Transfer Assessment Sit to and From Stand Sit to and from Stand Moderate Assistance,1 Person Assistance,Use of Upper Extremities Equipment Transfer Assistive Device Gait Belt,Front Wheeled Walker Orthotic/Prosthetic Devices or Brace: No Transfers Transfer Destination Toilet Transfer Technique ambulated Transfer Ability Level of Assist Moderate Assistance,1 Person Assistance,Use of Upper Extremities Comments Mobility Comments Pt in bed upon arrival, agreeable to ambulate to chair for lunch. Min A for logroll and sup<>sit. Pt requires increased time and fatigues very quickly. Mod A and cues for sit<>stand w/ FWW. Pt requested to use bathroom for bowel movement and ambulated ~ 20 ft w/ FWW w/ Mod A and cues for FWW mgmt. Mod A for slow descent onto toilet, pt left w / call light as requested. Gait Assessment Gait Gait Assistance Required: Moderate Assistance,1 Person Assist Distance (Feet) 20 Able to Maintain Weight Bearing Status Yes During Gait Assistive Devices Assistive Device Gait Belt,Front Wheeled Walker Orthotic/Prosthetic Devices or Brace: Yes Gait Deviations General Gait Pattern Antalgic,Decreased Stride Length,Decreased Feet Clearance,Step-to Gait,Wide Based Gait Factors Limiting Gait Function Factors Limiting Gait Function Decreased Activity Tolerance, Decreased Strength,Difficulty Following Directions,Limited Range of Motion,Pain,Poor Balance,Poor Safety Awareness Comments Gait Comments FWW mgmt, poor balance, high fall risk, cues for upright posture, quick approach to fatigue. Stair Climbing Assessment Comments Stair Climbing Comments not assessed PT-Balance Assessment Sitting Balance and Reactions Static Sitting Balance Ability Good Dynamic Sitting Balance Ability Fair Standing Balance and Reactions Static Standing Balance Ability Fair Dynamic Standing Balance Ability Poor Device Used FWW M5 PT-IP Objective Assessments Start: 11/01/22 16:24 Freq: NEEDED Status: Active Protocol: Document 11/01/22 15:40 AB (Rec: 11/01/22 16:44 AB [id number]) Orientation Orientation/Cognition Level of Alertness Confusional State Orientation Name Language Function Ability No Deficits Noted Safety Awareness Decreased Safety Awareness Memory Description Short Term Impaired Comments pt thought he was at home but was able to get reoriented Gross Range of Motion Lower Extremity ROM Assessment Left Impaired Impairments L knee flexion: ~ 50 deg with pain limiting ROM Strength Lower Extremity Strength Assessment Left Impaired Hip 3+/5 Knee 3+/5 Muscle Tone Muscle Tone WNL Yes M6 PT-IP Treatment Start: 11/01/22 16:24 Freq: NEEDED Status: Active Protocol: Document 11/02/22 11:35 KS (Rec: 11/02/22 12:18 KS [id number]) Physical Therapy Treatment Education Education Provided Safety M7 PT-IP Assessment and Plan Start: 11/01/22 16:24 Freq: NEEDED Status: Active Protocol: Document 11/02/22 11:35 KS (Rec: 11/02/22 12:18 KS [id number]) PT Summary Assessment and Plan Potential Rehabilitation Potential Fair Summary Impairments Pain,ROM,Strength,Balance, Coordination,Sensation,Tone, Cognition,Bed Mobility, Transfers,Gait,Activity Tolerance Progress Towards Goals Slow Progress due to Pain,Slow Progress due to Medical Issues,Slow Progress due to Activity Tolerance Assessment Summary Pt making slow progress but limited by low tolerance for activity and weakness. Min A for bed mobility, Mod A for sit<>Stand and 20 ft ambulation w/ FWW. Pt at high risk for falls d/t L side neglect and poor use of FWW, needing frequent cues for safety and proper use. He will require SNF to improve functional mobility independence and activity tolerance. Goals Bed Mobility Goal Standby Assistance Transfer Goal Contact Guard Assistance,Front Wheeled Walker Gait Goal Contact Guard Assistance,Front Wheel Walker Gait Distance 100 Other Goals improve bed mobility, transfers and ambulation ~ 200 ft mod I using 4WW Days to Meet Goals 10 Frequency of Treatment Frequency Of Treatment Once a Day Treatment Plan Physical Therapy Treatment Plan Bed Mobility Training,Transfer Training,Gait Training, Therapeutic Exercise,Balance Retraining,Post Op Education, Discharge Planning,Hot or Cold Pack,Neuromuscular Re-ed, Coordination Retraining,Manual Therapy Other Recommendations and Next Treatment Improve FWW use and gait Focus distance Weight Bearing Status Weight Bearing Status Weight Bear as Tolerated Allowed Weight Bearing Amount (enter % LLE WBAT or #) (%) Recommendations To Nursing Amount of Assist Needed 1 Person Assist Discharge Recommendations PT Discharge Recommendations SNF Rehab Equipment Needed for Home Before FWW if going home and not safe Discharge with 4WW Transportation Needs at Discharge Wheelchair/Cabulance
[2022-11-02] MEDS: ACETAMINOPHEN 325 MG TABLET 650 MG PO (13:25)
[2022-11-02] MEDS: OXYCODONE IR 5 MG TABLET PO (13:27)
[2022-11-02] MEDS: ATORVASTATIN 20 MG TABLET 80 MG PO (20:56)
[2022-11-03] VITALS (8 sets, daily range): BP systolic 128–143; BP diastolic 58–72; PULSE 60–68; RESP 16–20; TEMP 36.7–37.7; O2SAT 93–96
[2022-11-03] MEDS: ACETAMINOPHEN 325 MG TABLET 650 MG PO ×2 (01:18→15:59)
[2022-11-03 04:55] LABS: Hematocrit 34.6 % (41-53); Hemoglobin 11.8 g/dL (13.5-17.5); Mean Corpuscular HGB Conc 34.1 % (30-36); Mean Corpuscular Hemoglobin 31.1 PG (26-34); Mean Corpuscular Volume 91.2 fL (80-100); Platelet Count 229 X10^3/uL (150-400); Red Blood Cell Count 3.79 X10^6/uL (4.5-5.9); Red Cell Distribution Width 14.2 % (11.6-14.8); White Blood Cell Count 10.5 X10^3/uL (4.5-11.0)
[2022-11-03 05:03] LABS: Alanine Aminotransferase 42 IU/L (<50); Albumin 3.8 g/dL (3.5-5.0); Albumin Globulin Ratio 1.3 (1.0-2.8); Alkaline Phosphatase 75 U/L (38-126); Aspartate Aminotransferase 40 IU/L (17-59); BUN Creatinine Ratio 22.1 (6-22); Bilirubin Total 1.2 mg/dL (0.2-1.3); Blood Urea Nitrogen 23 mg/dL (9-20); Calcium 8.8 mg/dL (8.4-10.2); Carbon Dioxide 24 mmol/L (22-32); Chloride 102 mmol/L (98-107); Estimated Glomerular Filt Rate > 60 mL/min (>60); Glucose 117 mg/dL (80-110); HEMOLYSIS < 15 (0-50); Potassium 4.3 mmol/L (3.4-5.1); Sodium 134 mmol/L (137-145); Total Protein 6.8 g/dL (6.3-8.2)
--- NOTE | 2022-11-03 08:32 | P.PN_ITS ---
Subjective Subjective Interval history: Awake, up in chair and eating breakfast well. Neglecting things on the left side of his tray however due to hemianopia left side. Patient well aware that he needs further improvement with mobility and strength. Feels SNF is appropriate. No new complaints. Exam Vital Signs (past 8 hours): - 11/03/22 01:18 11/03/22 03:28 Temperature 99.5 F 99.1 F Pulse Rate 60 Respiratory Rate 17 Blood Pressure 138/63 Pulse Oximetry 93 Oxygen Flow Rate 0 Oxygen Delivery Method Room Air Oxygen Flow Rate 0 Narrative Exam Narrative: General:? Patient alert and cooperative.? Appears to be in no acute medical distress.? Sitting up in his chair. Eating breakfast well. HEENT:? Pupils equal reactive to light.? Extraocular movements normal.? Has left hemianopia. Neck:? Trachea midline.? No palpable neck nodes. Cardiovascular:? Heart sounds S1 and S2 with no extra sounds or murmurs.? Peripheral pulses equal bilaterally. Respiratory:? Adequate air entry throughout the lung dumont no wheezes or crackles. Gastrointestinal:? Abdomen is soft.? Nontender.? Bowel sounds normal.? Musculoskeletal:? Able to move all extremities volitionally.? Stiffness and decreased range of motion left knee with recent surgery. Left knee wound healing well with no signs of infection. Neuro:? Normal sensation of all extremities.? Left hemianopia. Skin:? No lesions or rashes.? Postoperative wound left knee with no acute findings. Psych:? Normal mood and affect. Objective Labs 11/03/22 04:34 11/03/22 04:34 Labs: Laboratory Results - last 24 hr 11/03/22 11/03/22 04:34 04:34 WBC 10.5 RBC 3.79 L Hgb 11.8 L Hct 34.6 L MCV 91.2 MCH 31.1 MCHC 34.1 RDW 14.2 Plt Count 229 Sodium 134 L Potassium 4.3 Chloride 102 Carbon Dioxide 24 BUN 23 H Creatinine 1.04 Estimated GFR > 60 BUN/Creatinine Ratio 22.1 H Glucose 117 H Calcium 8.8 Total Bilirubin 1.2 AST 40 ALT 42 Alkaline Phosphatase 75 Total Protein 6.8 Albumin 3.8 Globulin 3.0 Albumin/Globulin Ratio 1.3 [facility] [place] Medical History History of COVID-19 HLD (hyperlipidemia) Osteoarthritis Surgical History H/O vasectomy History of total left hip replacement Hx of knee surgery Hx of tonsillectomy Social History household members: spouse Smoking Status: Former smoker alcohol intake: current Assessment & Plan Assessment & Plan narrative: 1. Subacute stroke.? CT of the head demonstrates right parietal occipital ischemic lesion consistent with patient's clinical findings.? MRI for confirmation -completed acute MCA area ischemic CVA subacute.? On MRI, also noted remote DINA CVA.? Patient not aware of any previous stroke however.? Clopidogrel and aspirin, continue.? Carotid ultrasound demonstrates less than 50% stenosis in the right and left carotid arteries, echocardiogram demonstrates ejection fraction of 65-70%, physical therapy continue, occupational therapy, speech therapy.? Patient had NIHSS score of 2 on presentation.? Lipid panel shows LDL of 130 today.? Per physical therapy, patient will likely need SNF. Patient is improving slowly with mobility however. 2. Left hemianopia persistent and patient becoming more aware of its existence.? Acute and consistent with subacute stroke. 3. Postoperative left knee total arthroplasty.? Physical therapy.? Pain control. Continue to improve mobility. 4. Hypertension.? Patient has passed the time for permissive hypertension post acute stroke.? Continue to manage with the patient's regular regimen of medication and try to have systolic blood pressure less than 140. Currently adequately controlled today. 5. Gout.? Maintain patient's regular medication. 6. Hypothyroidism.? Continue replacement with levothyroxine 75 mcg daily.? Measured TSH, free T3 and free T4 -all within normal limits. 7. Post CVA lipid management.? Continue with atorvastatin 80 mg daily. Continue to treat the patient while he is in hospital. Plan for transfer to SNF. Code status:? On discussion with the patient, full code Substitute decision maker:? Son Clyde Newton, he is also POA DVT prophylaxis:? Enoxaparin 40 mg subQ daily Quality VTE Deep Vein Thrombosis/Pulmonary Embolism Present on Admission: No
[2022-11-03] MEDS: CHOLECALCIFEROL (VITAMIN D3) 1,000 UNIT TABLET 1000 UNIT PO (09:15)
[2022-11-03] MEDS: SPIRONOLACTONE 25 MG TABLET 37.5 MG PO (09:15)
[2022-11-03] MEDS: ENOXAPARIN 40 MG/0.4 ML SYRINGE SUBCUT (09:15)
[2022-11-03] MEDS: LABETALOL 100 MG TABLET 200 MG PO ×2 (09:17→21:46)
[2022-11-03] MEDS: ASCORBIC ACID 500 MG TABLET 250 MG PO (09:18)
[2022-11-03] MEDS: ASPIRIN EC 81 MG TABLET PO (09:18)
[2022-11-03] MEDS: CLOPIDOGREL 75 MG TABLET PO (09:19)
[2022-11-03] MEDS: AMLODIPINE 5 MG TABLET 10 MG PO (09:19)
[2022-11-03] MEDS: EZETIMIBE 10 MG TABLET PO (09:19)
[2022-11-03] MEDS: allopurinoL 100 MG TABLET PO (09:19)
[2022-11-03] MEDS: COLCHICINE 0.6 MG TABLET PO (09:54)
--- NOTE | 2022-11-03 11:08 | CM.DPC ---
DCP SNF Planning: Per MD, pt to work with OT/ST for initial eval today and ongoing PT and likely will be stable for d/c tomorrow Tues for SNF. SW called [facility] admissions and confirmed they can accept pt at discharge and aware he likely will be ready for d/c tomorrow. SW requested to set up transport time for tomorrow and awaiting update. SW called pt's son/DPIRVING Tang [phone] and updated on above and son very appreciative and really wants to be involved with any updates and remains agreeable with d/c to [facility]. Per son request, SW ask therapies to call son with brief update and AVIATION MAINTENANCE TECHNICIAN kindly willing to call son now. Plan: SW to follow for plan of d/c tomorrow Tues to [facility] where his spouse is rehabbing and awaiting confirmation for time of transport for tomorrow from [facility]. SW to keep son/DPIRVING Tang updated tomorrow on discharge. Janet Sweet MSW
--- NOTE | 2022-11-03 11:15 | PT.IPTN ---
Current Diagnoses Cerebral infarction, unspecified (11/01/22) Physical Therapy Treatment Note M2 PT-IP Current Condition Start: 11/01/22 16:24 Freq: NEEDED Status: Active Protocol: Document 11/01/22 15:40 AB (Rec: 11/01/22 16:44 AB [id number]) Physical Therapy Current Condition Current Condition Evaluation Date 11/01/22 Treatment Diagnosis CVA; s/p L TKA; difficulty in walking Onset Date 11/01/22 M3 PT-IP Subjective Start: 11/01/22 16:24 Freq: NEEDED Status: Active Protocol: Document 11/03/22 11:46 TS (Rec: 11/03/22 12:27 TS [id number]) Subjective Physical Therapy Visit Type Type Treatment Note Visit Start Time 11:15 Visit Stop Time 11:44 Total Visit Minutes 29 Number of RADIOGRAPHER MAMMOGRAPHER Visits 2 Physical Therapy Visit Comments Patient Comments Pt found resting in bed, reports havig gout in L ankle causing him pain, agreeable to PT. M4 PT-IP Mobility and Gait Start: 11/01/22 16:24 Freq: NEEDED Status: Active Protocol: Document 11/03/22 11:46 TS (Rec: 11/03/22 12:27 TS [id number]) PT-Bed Mobility Assessment Supine to Sit Supine to Sit Standby Assistance,1 Person Assistance,Bedrails Sit to Supine Sit to Supine Minimal Assistance Scooting Scooting to Edge of Bed Standby Assistance Scooting Up and Down in Bed Standby Assistance PT-Transfer Assessment Sit to and From Stand Sit to and from Stand Minimal Assistance Equipment Transfer Assistive Device Gait Belt,Front Wheeled Walker Orthotic/Prosthetic Devices or Brace: No Comments Mobility Comments Pt found resting in bed, agreeable to PT session. Supine to sit SBA, impulsive to move, difficulty coordinating RUE, requires cues for BUE support to maintain sitting balance. Sit to stand x1 Russell, demonstrates poor motor planning with sequencing requires cues for weight forward and UE support. Pt ambulated in hallway ~100' initially CGA progressed to SBA, requires cues for FWW management (pt bumping into objects/barr), unsteady gait due to gout pain in L ankle. Sit to supine Russell for LLE assistance into bed. He scooted to HOB with cues for pushing with elbows and RLE heel. Pt was left in bed with call light nearby and all needs met. Gait Assessment Gait Gait Assistance Required: Standby Assistance,Contact Guard Assist,1 Person Assist Distance (Feet) 100 Able to Maintain Weight Bearing Status Yes During Gait Assistive Devices Assistive Device Gait Belt,Front Wheeled Walker Orthotic/Prosthetic Devices or Brace: Yes Gait Deviations General Gait Pattern Antalgic,Decreased Stride Length,Decreased Feet Clearance,Step-to Gait,Wide Based Gait Factors Limiting Gait Function Factors Limiting Gait Function Decreased Activity Tolerance, Decreased Strength,Difficulty Following Directions,Limited Range of Motion,Pain,Poor Balance,Poor Safety Awareness Comments Gait Comments Continues to have poor balance and high falls risk. Requires tactile cues for FWW mgmt, runs into barr/objects. PT-Balance Assessment Sitting Balance and Reactions Static Sitting Balance Ability Good Dynamic Sitting Balance Ability Fair Standing Balance and Reactions Static Standing Balance Ability Fair Dynamic Standing Balance Ability Poor Device Used FWW M5 PT-IP Objective Assessments Start: 11/01/22 16:24 Freq: NEEDED Status: Active Protocol: Document 11/01/22 15:40 AB (Rec: 11/01/22 16:44 AB [id number]) Orientation Orientation/Cognition Level of Alertness Confusional State Orientation Name Language Function Ability No Deficits Noted Safety Awareness Decreased Safety Awareness Memory Description Short Term Impaired Comments pt thought he was at home but was able to get reoriented Gross Range of Motion Lower Extremity ROM Assessment Left Impaired Impairments L knee flexion: ~ 50 deg with pain limiting ROM Strength Lower Extremity Strength Assessment Left Impaired Hip 3+/5 Knee 3+/5 Muscle Tone Muscle Tone WNL Yes M6 PT-IP Treatment Start: 11/01/22 16:24 Freq: NEEDED Status: Active Protocol: Document 11/03/22 11:46 TS (Rec: 11/03/22 12:27 [id number]) Physical Therapy Treatment Education Education Provided Safety M7 PT-IP Assessment and Plan Start: 11/01/22 16:24 Freq: NEEDED Status: Active Protocol: Document 11/03/22 11:46 TS (Rec: 11/03/22 12:27 [id number]) PT Summary Assessment and Plan Potential Rehabilitation Potential Good Status of Condition at Evaluation Evolving Summary Impairments Pain,ROM,Strength,Balance, Coordination,Sensation,Tone, Cognition,Bed Mobility, Transfers,Gait,Activity Tolerance Progress Towards Goals Progressing Toward Goals Assessment Summary Pt continues to demonstrate poor motor planning with mobility, requires frequent cues for safety and is impulsive to move before therapist is ready. He progressed supine to sit to SBA, required increased effort due to poor coordination and L sided neglect. Pt increased ambulation distance to ~100 CGA progressing to SBA, requires tactile cues for FWW mgmt due to running into barr /objects, is unsteady with gait and has decreased tolerance to activity due to gout pain/L TKA. PT continues to recommend SNF rehab to improve motor planning, activity tolerance, gait and balance. Goals Bed Mobility Goal Standby Assistance Transfer Goal Contact Guard Assistance,Front Wheeled Walker Gait Goal Contact Guard Assistance,Front Wheel Walker Gait Distance 100 Other Goals improve bed mobility, transfers and ambulation ~ 200 ft mod I using 4WW Days to Meet Goals 10 Frequency of Treatment Frequency Of Treatment Once a Day Treatment Plan Physical Therapy Treatment Plan Bed Mobility Training,Transfer Training,Gait Training, Therapeutic Exercise,Balance Retraining,Post Op Education, Discharge Planning,Hot or Cold Pack,Neuromuscular Re-ed, Coordination Retraining,Manual Therapy Other Recommendations and Next Treatment Improve FWW use and gait Focus distance Weight Bearing Status Weight Bearing Status Weight Bear as Tolerated Allowed Weight Bearing Amount (enter % LLE WBAT or #) (%) Recommendations To Nursing Amount of Assist Needed 1 Person Assist Discharge Recommendations PT Discharge Recommendations SNF Rehab Equipment Needed for Home Before FWW if going home and not safe Discharge with 4WW Transportation Needs at Discharge Wheelchair/Cabulance
--- NOTE | 2022-11-03 13:45 | OT.IP.EVAL ---
Current Diagnoses Cerebral infarction, unspecified (11/01/22) Past Medical History (Last Reviewed 11/01/22 @ 16:49 by Neyda Gee MD) History of COVID-19 HLD (hyperlipidemia) Osteoarthritis Surgical History (Last Reviewed 11/01/22 @ 16:49 by Neyda Gee MD) H/O vasectomy History of total left hip replacement Hx of knee surgery Hx of tonsillectomy Occupational Therapy Inpatient Evaluation/Re-Eval M1 PT/OT-IP Prior Functional Status Start: 11/01/22 16:24 Freq: NEEDED Status: Active Protocol: Document 11/03/22 13:47 CGR (Rec: 11/03/22 14:05 CGR [id number]) Medical Review Prior Functional Status Medical History Reviewed Yes Communication able to make needs known; with slight confusion Mobility and Gait pt stated that he just had a L TKA last thursday but went home the same day and had been using a 4WW mod I for mobility. Prior to L TKA, pt was independent with all mobilities without AD Activities of Daily Living and IADL's Pt states he was IND in all ADLs prior to October 29, 2022 L TKA. 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 Social History Household Members spouse Living Arrangements House Number of Floors (Floors) One Floor Number of Stairs To Enter/Railing? ramp to enter Home Environment High Toilet,Walk in Shower, Ramp Home Equipment Four Wheel Walker,Shower Seat with Backrest,Hand Held Shower ,Grab Bars Near Toilet Additional Social History Comment pt lives with his spouse but spouse is also disabled per pt and per son, pt's spouse is in SNF right now; currently, pt's sister from [place] is staying with him to assist him but will not be able to provide physical assistance; sister is using a SPC for mobility M2 OT-IP Current Condition Start: 11/03/22 13:47 Freq: Status: Active Protocol: Document 11/03/22 13:47 CGR (Rec: 11/03/22 14:05 CGR [id number]) Occupational Therapy Current Condition Current Condition Evaluation Date 11/03/22 Treatment Diagnosis CVA after recent 10/29/22 L TKA Diagnosis Onset Date 10/29/22 Weight Bearing Status Weight Bearing Status Weight Bear as Tolerated M3 OT- IP Subjective and Pain Start: 11/03/22 13:47 Freq: Status: Active Protocol: Document 11/03/22 13:47 CGR (Rec: 11/03/22 14:05 CGR [id number]) OT- Subjective Occupational Therapy Visit Type Type Initial Evaluation Visit Start Time 13:05 Visit Stop Time 13:45 Total Visit Minutes 40 Notes Pt's sister present throughout session. OT Pain Assessment Pain When Pain Assessed At Rest Pain Present Pain Present Pain Reported Location Left Knee Scale Used did not rate Management Techniques Modification of Treatment,Re- positioning M4 OT- IP ADL's Start: 11/03/22 13:47 Freq: Status: Active Protocol: Document 11/03/22 13:47 CGR (Rec: 11/03/22 14:05 CGR [id number]) OT [id number] Comments OT Self-Feeding Comments not meal time OT ADL-Grooming Comments OT Grooming Comments pt declined OT ADL-Oral Care Comments Oral Care Comments pt declined OT ADL-Dressing General Eval Lower Body Dressing Ability Total Assistance Areas Needing Assistance Socks Comments OT Dressing Comments in bed OT ADL-Toileting Comments OT Toileting Comments not performed OT ADL-Bathing Comments OT Bathing Comments not performed M5 OT- IP IADL's Start: 11/03/22 13:47 Freq: Status: Active Protocol: Document 11/03/22 13:47 CGR (Rec: 11/03/22 14:05 CGR [id number]) OT-Instrumental Activities of Daily Living Deficits IADL Deficits Identified Deficits Home Safety Awareness Awareness of Need for Assistance at Home Decreased Awareness Ability to Problem Solve Emergency Unable to Problem Solve Situations Medication Management Medication Management Comments Concerns regarding pt's ability to perform safely Money Management Money Management Comments Concerns regarding pt's ability to perform safely Meal Preparation Meal Preparation Comments Concerns regarding pt's ability to perform safely Windows Application Developer Windows Application Developer Comments Concerns regarding pt's ability to perform safely Driving Driving Comments Pt is unable to drive safely at this time d/t L visual field cut and difficulty with crossing midline to the left. M6 OT- IP Functional Cognition Start: 11/03/22 13:47 Freq: Status: Active Protocol: Document 11/03/22 13:47 CGR (Rec: 11/03/22 14:05 CGR [id number]) Cognitive Factors Limiting Selfcare Function Cognitive Ability Level of Alertness Alert Patient Orientation Name,Age,Birthday,Month,Year, Place,Situation Attention Span Ability Capable of Focused Attention, Capable of Sustained Attention Ability to Follow Commands Able to Follow One Step Commands with Increased Time, Able to Follow One Step Commands with Repetition Cognitive Comments Cognitive Assessment Comments Pt would benefit from formal cog assessment. Pt displays inability to perform simple cognitive tasks like determine which side of the bed he exits from daily. OT- Vision and Hearing OT- Hearing Assessment OT- Hearing Assessment WFL OT- Vision Assessment Visual Acuity Glasses All The Time Visual Attentiveness Impaired Occular Pursuits Impaired Horizontal Visual Reina Impaired Visual Spacial Neglect Left Vision Assessment Comments Pt displays a L visual field cut with impaired ability to cross midline to the left. Pt is able to cross midline with max vc and visual cues. Pt is also displaying moderate L neglect. Pt wears bifocals. M7 OT- IP Mobility and Balance Start: 11/03/22 13:47 Freq: Status: Active Protocol: Document 11/03/22 13:47 CGR (Rec: 11/03/22 14:05 CGR [id number]) OT- Bed Mobility Assessment Supine to Sit Supine to Sit Assist Standby Assistance Sit to Supine Sit to Supine Assist Minimal Assistance Scooting Scooting to Edge of Bed Independent OT-Transfer Assessment Sit to and From Stand Sit to and from Stand Standby Assistance Transfers Transfer Ability Standby Assistance Technique Transfer Destination Bed Transfer Technique Stand Step Pivot Devices Transfer Assistive Devices Gait Belt,Front Wheeled Walker Comments Mobility Comments Pt was able to stand and take steps at side of the bed. OT- Gait Assessment Comments Gait Ability Comments see P.T. note for further information OT- Balance Assessment Sitting Balance and Reactions Static Sitting Balance Ability Good Dynamic Sitting Balance Ability Fair Comments Other Balance Tests/Deviations/Treatment Pt leans to the R with sitting : balance but is able to achieve midline sitting with verbal cues. M8 OT- IP Objective Assessments Start: 11/03/22 13:47 Freq: Status: Active Protocol: Document 11/03/22 13:47 CGR (Rec: 11/03/22 14:05 CGR [id number]) OT Gross Range of Motion Upper Extremity Range of Motion Assessment Within Functional Limits OT Strength Upper Extremity Strength Assessment Left Impaired Comments Strength Comments R 5/5 L shld 4-/5, arm and hand 4+/5 OT- Coordination Assessment Upper Extremity Finger to Nose Test Left UE Impaired Finger Tapping Test Left UE Impaired Comments Coordination Comments Pt's L arm is delayed with movements and requires extra time for thumb to finger fine motor tasks. OT-Muscle Tone Assessment Muscle Tone WNL Yes OT Sensation Assessment Comments Summary Comments Pt states sensation is intact. 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 M9 OT- IP Assessment and Plan Start: 11/03/22 13:47 Freq: Status: Active Protocol: Document 11/03/22 13:47 CGR (Rec: 11/03/22 14:05 CGR [id number]) OT Summary Assessment and Plan Potential Rehabilitation Potential Good Analytic Complexity at Evaluation High Summary OT Impairments Pain,Strength,Balance, Coordination,Functional Cognition,Functional Mobility, Grooming,Dressing,Toileting, Bathing,Toilet Transfers, Shower Transfers,Activity Tolerance Progress Towards Goals Slow Progress due to Pain,Slow Progress due to Medical Issues,Slow Progress due to Activity Tolerance,Slow Progress due to Cognition Assessment Summary Pt presents as a high complexity evaluation s/p admit for CVA after recent (10/29/22) L TKA. Pt displays R sided leaning, L weakness to the UE, declines to LUE coordination, L visual field cut, difficulty tracking eyes across midline to the left, and L inattention. Pt will benefit from continued therapy services. Family is requesting that pt [facility] as pt's spouse is there for rehab currently. Pt will benefit from SNF placement upon discharge. Goals Self-Feeding Goal Independent Grooming Goal Independent Dressing Goal Independent Toileting Goal Independent Bathing Goal Independent Toilet Transfer Goal Independent Shower Transfer Goal Independent OT-Other Goals Pt will display visual tracking to the L 50% of the time without VC during functional mobility and ADLs. Days to Meet Goals 30 Frequency of Treatment Frequency Of Treatment Once a Day Treatment Plan OT Treatment Plan ADL Training,Functional Cognition Training,Functional Mobility,Neuromuscular Re- education,Therapeutic Exercises,Vision Retraining, Patient/Family Education, Discharge Planning Other Treatment Recommendations and Next cog assessment, trailmaking Treatment Focus assessment Discharge Recommendations OT Discharge Recommendations SNF Rehab Transportation Needs at Discharge Private Vehicle,Wheelchair/ Cabulance
--- NOTE | 2022-11-03 14:32 | ST.IPCSEOM ---
Visit Care Team Role Provider Type Gareth Aguilar PA-C Primary Care Provider Non-Staff Specialty: Medical Address: [address] [place] [address], [id number] Email: Paulino Cloud DO Emergency Provider Physician Referring Provider Specialty: Emergency Medicine Address: [address] [place] [address], [address] Email: [email or web address] Neyda Gee MD Admit Provider Physician Attending Provider Specialty: Family Practice Address: [address] [place] [address], [address] Phone: Fax: Email: [email or web address] Current Diagnoses Cerebral infarction, unspecified (11/01/22) Past Medical History (Last Reviewed 11/01/22 @ 16:49 by Neyda Gee MD) History of COVID-19 (Medical) x 2, last episode 2020, fully vaccinated HLD (hyperlipidemia) (Medical) Osteoarthritis (Medical) Speech-Language Pathology Swallow Evaluation DECAY CONTROL OPERATOR Clinical Swallow Evaluation Start: 11/03/22 14:05 Freq: Status: Active Protocol: Document 11/03/22 14:05 MELVINA (Rec: 11/03/22 14:31 ZS [id number]) Clinical Swallow Evaluation Session Time Visit Start Time 11:50 Visit Stop Time 12:12 Total Visit Minutes 22 Setting Assessment Location Acute Care Visit Type Note Type Initial evaluation Next Note Type Next Note Type Treatment Note Patient Information Identification Type Name,Wristband History Per H&P: alexa Newton is an 82-year-old male.? Is 3 days postop from a elective left total knee arthroplasty.? He stated that the procedure went well.? He was discharged home that same day.? That evening he started to develop a headache.? He states the headache has been consistent for the past 3 days.? He did have some chest pain but that was a couple days ago that is completely resolved.? No shortness of breath.? No nausea vomiting.? He stated that his pain has been fairly well-controlled.? He has been trying to get up and move around per the instructions given to him by the orthopedic surgeon.? He is not on anticoagulation.? He states that this morning he was trying to get up out of his chair.? He states that he slid onto the ground.? He did not hit his head.? No loss of consciousness.? No injuries from the event.? He states he is left knee is somewhat more sore after the event but he did not specifically felt like he hurt his knee.? They contacted EMS to come out for a lift assist but while they were at the house the patient' s sister who was at the house with the patient and who is also was at bedside stated that for the past couple days he is had issues with vision and also seems to be ataxic and leaning to the left side.? Patient thinks that the vision issues just started today but his sister states that she is noticed issues over the past couple days. No fever or chills. No palpitations. No shortness of breath or wheezing. No cough . No abdominal pain constipation or diarrhea. Able to move all extremities volitionally. No neurological symptoms in the extremities. Per PT evaluation on 11/01/22, the patient likely will need SNF due to decreased mobility and impulsivity affecting patient's function. The impulsivity likely comes from the subacute stroke. Patient himself is more aware of his visual deficit currently but can not describe accurately just knows that there is areas that he can not see well. Subjective Observations Pt was reclined in bed when DECAY CONTROL OPERATOR and DECAY CONTROL OPERATOR student arrived. He agreed to participate in swallow assessment and was repositioned to upright position. During OME, pt's noon meal arrived. Noon meal consisted of peaches, cottage cheese, milk, chicken noodle soup, and chocolate ice cream. Reported by Patient Current Diet Thin liquids Baseline Feeding Method Independent in self-feeding Results Pt is currently on mechanical soft diet and thin liquids, which NSG suspects is related to pt's edentulous status. However, pt did state he has dentures with him and wore them for this evaluation. Objective Assessment Mental Status Alert,Responsive,Cooperative Oral Integrity WFL Dentition Missing teeth,Dentures or partials present,Upper dentures/partials,Lower dentures/partials Lip Function Within normal limits Observation of Lips at Rest Symmetrical Pucker Within normal limits Lip Retraction Within normal limits Alternating Pucker/Lip Retraction Within normal limits Tongue Function Mild impairment Observations of Tongue at Rest Within normal limits Tongue Protrusion Reduced range of motion Tongue Retraction Reduced range of motion Tongue Lateralization Reduced range of motion Jaw Function Within normal limits Observations of Jaw at Rest Within normal limits Jaw Opening Within normal limits Jaw Closing Within normal limits Jaw Lateralization Within normal limits Jaw Protrusion Within normal limits Jaw Retraction Within normal limits Hard/Soft Palate Function Within normal limits Observations of Hard/Soft Palate Within normal limits Nasality Within normal limits Phonation Within normal limits Respiratory Sufficiency Within normal limits Comment Structures were symmetrical at rest and in motion. Tongue ROM was reduced across all movements. Jaw and lip strength and ROM was WNL. Pt was not wearing dentures for OME, but did put them in for PO trials and stated they fit well with the occasional food getting stuck below dentures. Pt stated he typically enjoys eating a regular diet and likes eating salads at home. Food and Liquid Trials Position During Assessment Upright (90 degrees),In bed Liquids Trialed Ice chips,Thin Solids Trialed Puree,Dysphagia Mechanical, Mechanical Soft Administration Type Tea spoon,Cup single sip,Cup consecutive sips,Self-feeding Oral Impairment Mildly impaired Oral Phase Comments No anterior loss of bolus. Mastication of chicken (in chicken noodle soup) was significantly prolonged and pt ended up spitting out piece, which appeared minimally chewed. Chicken was about a 1/ 2-inch cube and pt reported it was unusually chewy. Mastication and a/p propulsion of other textures was WNL. Did not complete trial with regular texture (tom cracker) due to difficulty with mastication of chicken. Mild oral residue present after eating cottage cheese, no residue after other textures. Difficulty noted with locating food on plate and locating utensils, secondary to visual impairment . Pharyngeal Impairment Within normal limits Pharyngeal Phase Comments No overt signs or symptoms of aspiration observed or reported with any textures presented. Unable to rule out silent aspiration with clinical swallow assessment and MBS is not recommended at this time. Pt appeared to safely tolerate mechanical soft diet and thin liquids. Comment Pt stopped eating after spitting out chicken, unclear if this is due to fatigue or lack of appetite. Pt stated he has no interest in eating at this time and has been eating smaller quantities of food. Unable to assess endurance at this time due to limited trials completed. Findings Comment The pt presents with mild oral phase dysphagia characterized by prolonged mastication secondary to dentures. Difficulty masticating a 1/2- inch piece of chicken from his chicken noodle soup, which pt chewed for about 3 minutes before spitting out. After spitting out the chicken, pt discontinued eating, stating he was no longer interested in eating. Unclear if pt was fatigued or had diminished appetite, though no signs of fatigue were observed. No overt signs or symptoms of aspiration noted across textures. Unable to rule out silent aspiration with clinical swallow assessment. Additionally, pt exhibited difficulty locating utensils and food on his plate due to visual impairment. Recommend continued diet of mechanical soft textures and thin liquids . Due to visual impairment, spacing out utensils and food across right visual field (e.g ., all food and utensils to pt 's right side and space between each item for easier visual access to field) may benefit pt in independent eating. Recommend follow-up with speech therapy to monitor and advance diet as indicated . Impact on Safety and Functioning Risk for aspiration Recommendations Instrumental Assessment No Swallowing Treatment Yes Frequency follow-up 1x per day for diet tolerance and advancement as indicated Recommended Solids Mechanical Soft Recommended Liquids Thin Medication Recommendations As Tolerated Discharge Recommendations intermediate facility Education Patient/Caregiver Education Described results of evaluation,Patient expressed understanding of evaluation, Patient expressed agreement with goals & treatment plans, Patient expressed understanding of safety precautions,Patient expressed understanding of feeding recommendations,Patient requires further education/ training Goals Long-term Goals Pt will safely tolerate least restrictive diet to meet his nutrition and hydration needs.
[2022-11-03] MEDS: OXYCODONE IR 5 MG TABLET PO (15:49)
[2022-11-03] MEDS: ATORVASTATIN 20 MG TABLET 80 MG PO (21:46)
[2022-11-04] VITALS: BP 143/59; PULSE 66; RESP 16; TEMP 37; O2SAT 94
[2022-11-04 03:07] VITALS: BP 141/66; PULSE 65; RESP 16; TEMP 37.2; O2SAT 94
[2022-11-04] MEDS: LEVOTHYROXINE 75 MCG TABLET PO (06:20)
[2022-11-04 07:00] VITALS: BP 154/70; PULSE 58; RESP 18; TEMP 36.9; O2SAT 94
--- NOTE | 2022-11-04 07:45 | PM.DS.1 ---
History of Present Illness History of Present Illness Date Patient Seen: 11/01/22 Chief complaint: Headache, blurry vision, loss of balance Narrative: alexa Newton is an 82-year-old male.? Is 3 days postop from a elective left total knee arthroplasty.? He stated that the procedure went well.? He was discharged home that same day.? That evening he started to develop a headache.? He states the headache has been consistent for the past 3 days.? He did have some chest pain but that was a couple days ago that is completely resolved.? No shortness of breath.? No nausea vomiting.? He stated that his pain has been fairly well-controlled.? He has been trying to get up and move around per the instructions given to him by the orthopedic surgeon.? He is not on anticoagulation.? He states that this morning he was trying to get up out of his chair.? He states that he slid onto the ground.? He did not hit his head.? No loss of consciousness.? No injuries from the event.? He states he is left knee is somewhat more sore after the event but he did not specifically felt like he hurt his knee.? They contacted EMS to come out for a lift assist but while they were at the house the patient's sister who was at the house with the patient and who is also was at bedside stated that for the past couple days he is had issues with vision and also seems to be ataxic and leaning to the left side.? Patient thinks that the vision issues just started today but his sister states that she is noticed issues over the past couple days. No fever or chills. No palpitations. No shortness of breath or wheezing. No cough. No abdominal pain constipation or diarrhea. Able to move all extremities volitionally. No neurological symptoms in the extremities. Discharge Providers Provider Date of admission: 11/01/22 12:27 Discharge Date: 11/04/22 Primary care physician: Gareth Aguilar PA-C Consults: 11/01/22 14:49 Consult to Speech Therapy Evaluate & Treat Comment: Subacute CVA Physician Instructions: Evaluate and treat 11/01/22 14:51 Consult to Occupational Therapy Evaluate & Treat Comment: Post CVA Physician Instructions: Evaluate and treat Consult to Physical Therapy Evaluate & Treat Comment: Post CVA Physician Instructions: Evaluate and Treat Discharge provider: Rodrigo Jean, DO Summary Hospital Course Discharge Diagnosis: 1. Subacute stroke.? CT of the head demonstrates right parietal occipital ischemic lesion consistent with patient's clinical findings.? MRI for confirmation -completed acute MCA area ischemic CVA subacute.? On MRI, also noted remote DINA CVA.? Patient not aware of any previous stroke however.?Carotid ultrasound demonstrates less than 50% stenosis in the right and left carotid arteries, echocardiogram demonstrates ejection fraction of 65-70%, physical therapy continue, occupational therapy, speech therapy.? Patient had NIHSS score of 2 on presentation therefore receiving ASA plus plavix x21 days.? Lipid panel shows LDL of 130.? Per physical therapy, patient will likely need SNF.? Patient is improving slowly with mobility. 2. Left hemianopia persistent and patient becoming more aware of its existence.? Acute and consistent with subacute stroke. 3. Postoperative left knee total arthroplasty.? Physical therapy.? Pain control.? Continue to improve mobility. Continue BID aspirin for 6 weeks from 10/29 then change to aspirin once daily indefinitely. 4. Hypertension.? Patient has passed the time for permissive hypertension post acute stroke.? Continue to manage with the patient's regular regimen of medication and try to have systolic blood pressure less than 140.? Currently adequately controlled. 5. Gout.? Maintain patient's regular medication. 6. Hypothyroidism.? Continue replacement with levothyroxine 75 mcg daily.? Measured TSH, free T3 and free T4 -all within normal limits. 7. Post CVA lipid management.? Started atorvastatin 80 mg daily. Hospital Course: Admitted for visual changes and ataxia 3 days after total knee replacement and found to have subacute stroke. Already on aspirin 81 BID so plavix added for 21 days. Aspirin will go to once daily after 6 weeks from knee surgery on 10/29. Patient not on statin so lipitor 80 nightly started. Echo showed no clot. PT/OT rec SNF and was discharged to [facility] on 11/04. Time Spent with Patient Time spent: Greater than 30 minutes Exam Vital Signs (past 8 hours): - 11/04/22 00:00 11/04/22 03:07 Temperature 98.6 F 98.9 F Pulse Rate 66 65 Respiratory Rate 16 16 Blood Pressure 143/59 H 141/66 H Pulse Oximetry 94 94 Oxygen Flow Rate 0 0 Oxygen Delivery Method Room Air Oxygen Flow Rate 0 Narrative Exam Narrative: General:? Patient alert and cooperative.? Appears to be in no acute medical distress.? Sitting up in his chair. Eating breakfast well. HEENT:? Pupils equal reactive to light.? Extraocular movements normal.? Has left hemianopia. Neck:? Trachea midline.? No palpable neck nodes. Cardiovascular:? Heart sounds S1 and S2 with no extra sounds or murmurs.? Peripheral pulses equal bilaterally. Respiratory:? Adequate air entry throughout the lung dumont no wheezes or crackles. Gastrointestinal:? Abdomen is soft.? Nontender.? Bowel sounds normal.? Musculoskeletal:? Able to move all extremities volitionally.? Stiffness and decreased range of motion left knee with recent surgery. Left knee wound healing well with no signs of infection. Neuro:? Normal sensation of all extremities.? Left hemianopia. Skin:? No lesions or rashes.? Postoperative wound left knee with no acute findings. Psych:? Normal mood and affect. Objective Labs 11/03/22 04:34 11/03/22 04:34 [facility] Medical History History of COVID-19 HLD (hyperlipidemia) Osteoarthritis Surgical History H/O vasectomy History of total left hip replacement Hx of knee surgery Hx of tonsillectomy Social History household members: spouse Smoking Status: Former smoker alcohol intake: current Discharge Plan Discharge Plan Patient Disposition: SNF Discharge orders & Medications Prescriptions: New atorvastatin 80 mg tablet 80 mg PO BEDTIME Qty: 30 0RF clopidogrel 75 mg Tablet 75 mg PO DAILY 19 Days Qty: 19 0RF Continued amlodipine 10 mg tablet 10 mg PO DAILY ezetimibe 10 mg tablet 10 mg PO DAILY spironolactone 25 mg tablet 37.5 mg PO DAILY ascorbate calcium (vitamin C) 500 mg tablet 240 mg PO DAILY cholecalciferol (vitamin D3) 25 mcg (1,000 unit) capsule 25 mcg PO DAILY allopurinol 100 mg Tablet 100 mg PO DAILY levothyroxine 75 mcg Tablet 75 mcg PO DAILY labetalol 100 mg Tablet 200 mg PO BID colchicine 0.6 mg tablet 0.6 mg PO DAILY PRN (Reason: Gout flare) acetaminophen 325 mg Tablet 650 mg PO Q6H PRN (Reason: Fever/Mild Pain (1-3)) Qty: 250 0RF aspirin 81 mg Tablet,Delayed Release (Dr/Ec) 81 mg PO BID Qty: 84 0RF oxycodone 5 mg Tablet 5 mg PO Q4HR Qty: 40 0RF Discontinued ibuprofen 600 mg Tablet 600 mg PO Q6HR PRN (Reason: Fever/Mild Pain (1-3)) Qty: 250 0RF Follow up/Referrals: Gareth Aguilar PA-C [Primary Care Provider] - 2 Weeks Diet/Activity/Treatments Diet: Regular Liquid consistency: Normal/Thin Food texture: Soft [facility] Rehab type: Physical therapy, Occupational therapy and Speech therapy Visit Report/Discharge Packet Stand Alone Forms: Patient Portal/API Discharge Data Primary Care Provider: Gareth Aguilar Quality VTE Deep Vein Thrombosis/Pulmonary Embolism Present on Admission: No
[2022-11-04] MEDS: ASPIRIN EC 81 MG TABLET PO (09:50)
[2022-11-04] MEDS: COLCHICINE 0.6 MG TABLET PO ×2 (09:51→10:49)
[2022-11-04] MEDS: CLOPIDOGREL 75 MG TABLET PO (09:51)
[2022-11-04] MEDS: ASCORBIC ACID 500 MG TABLET 250 MG PO (09:51)
[2022-11-04] MEDS: SPIRONOLACTONE 25 MG TABLET 37.5 MG PO (09:51)
[2022-11-04 09:52] VITALS: BP 154/70; PULSE 58
[2022-11-04] MEDS: LABETALOL 100 MG TABLET 200 MG PO (09:52)
[2022-11-04] MEDS: AMLODIPINE 5 MG TABLET 10 MG PO (09:52)
[2022-11-04] MEDS: allopurinoL 100 MG TABLET PO (09:52)
[2022-11-04] MEDS: EZETIMIBE 10 MG TABLET PO (09:53)
[2022-11-04] MEDS: ENOXAPARIN 40 MG/0.4 ML SYRINGE SUBCUT (09:53)
[2022-11-04] MEDS: CHOLECALCIFEROL (VITAMIN D3) 1,000 UNIT TABLET 1000 UNIT PO (09:53)
[2022-11-04 11:00] VITALS: BP 146/64; PULSE 63; RESP 16; TEMP 36.8; O2SAT 94
--- NOTE | 2022-11-04 11:00 | PT.IPTN ---
Current Diagnoses Cerebral infarction, unspecified (11/01/22) Physical Therapy Treatment Note M2 PT-IP Current Condition Start: 11/01/22 16:24 Freq: NEEDED Status: Active Protocol: Document 11/01/22 15:40 AB (Rec: 11/01/22 16:44 AB [id number]) Physical Therapy Current Condition Current Condition Evaluation Date 11/01/22 Treatment Diagnosis CVA; s/p L TKA; difficulty in walking Onset Date 11/01/22 M3 PT-IP Subjective Start: 11/01/22 16:24 Freq: NEEDED Status: Active Protocol: Document 11/04/22 12:16 TS (Rec: 11/04/22 12:38 TS [id number]) Subjective Physical Therapy Visit Type Type Treatment Note Visit Start Time 11:00 Visit Stop Time 11:28 Total Visit Minutes 28 Number of DUST CONTROL ENGINEER Visits 3 Physical Therapy Visit Comments Patient Comments Pt found resting in bed, continues to report pain with gout, is ready to d/c to SNF with spouse. Therapy Pain Assessment Pain When Pain Assessed At Rest Pain Present Pain Present Pain Reported M4 PT-IP Mobility and Gait Start: 11/01/22 16:24 Freq: NEEDED Status: Active Protocol: Document 11/04/22 12:16 TS (Rec: 11/04/22 12:38 TS [id number]) PT-Bed Mobility Assessment Supine to Sit Supine to Sit Minimal Assistance,Bedrails Scooting Scooting to Edge of Bed Standby Assistance PT-Transfer Assessment Sit to and From Stand Sit to and from Stand Contact Guard Assistance Equipment Transfer Assistive Device Gait Belt,Front Wheeled Walker Orthotic/Prosthetic Devices or Brace: No Comments Mobility Comments Pt found resting in bed, agreeable to PT. Supine to sit with HOB elevated Russell for LLE and handrail assist for uprighting trunk. Sit to stand CGA, demonstrates poor coordination of UEs , requires cues for BUE support pushing from bed. Pt ambulated ~100' in hallway SBA, demonstrates increased ability to navigate around objects in hallway with FWW, antalgic gait due to gout in LLE. Pt requested back to room to use toilet, stand to sit with BUE support on handrails. Sit to stand from toilet CGA, provided cues for sequencing. Ambulated to bedside chair ~8' SBA. Pt was left in chair with call light nearby and all needs met. Gait Assessment Gait Gait Assistance Required: Standby Assistance,Contact Guard Assist,1 Person Assist Distance (Feet) 100 Able to Maintain Weight Bearing Status Yes During Gait Assistive Devices Assistive Device Gait Belt,Front Wheeled Walker Orthotic/Prosthetic Devices or Brace: Yes Gait Deviations General Gait Pattern Antalgic,Decreased Stride Length,Decreased Feet Clearance,Step-to Gait,Wide Based Gait Factors Limiting Gait Function Factors Limiting Gait Function Decreased Activity Tolerance, Decreased Strength,Difficulty Following Directions,Limited Range of Motion,Pain,Poor Balance,Poor Safety Awareness Stair Climbing Assessment Comments Stair Climbing Comments not assessed PT-Balance Assessment Sitting Balance and Reactions Static Sitting Balance Ability Good Dynamic Sitting Balance Ability Fair Standing Balance and Reactions Static Standing Balance Ability Good Dynamic Standing Balance Ability Fair Device Used FWW M5 PT-IP Objective Assessments Start: 11/01/22 16:24 Freq: NEEDED Status: Active Protocol: Document 11/01/22 15:40 AB (Rec: 11/01/22 16:44 AB [id number]) Orientation Orientation/Cognition Level of Alertness Confusional State Orientation Name Language Function Ability No Deficits Noted Safety Awareness Decreased Safety Awareness Memory Description Short Term Impaired Comments pt thought he was at home but was able to get reoriented Gross Range of Motion Lower Extremity ROM Assessment Left Impaired Impairments L knee flexion: ~ 50 deg with pain limiting ROM Strength Lower Extremity Strength Assessment Left Impaired Hip 3+/5 Knee 3+/5 Muscle Tone Muscle Tone WNL Yes M6 PT-IP Treatment Start: 11/01/22 16:24 Freq: NEEDED Status: Active Protocol: Document 11/04/22 12:16 TS (Rec: 11/04/22 12:38 TS [id number]) Physical Therapy Treatment Education Education Provided Safety M7 PT-IP Assessment and Plan Start: 11/01/22 16:24 Freq: NEEDED Status: Active Protocol: Document 11/04/22 12:16 TS (Rec: 11/04/22 12:38 TS [id number]) PT Summary Assessment and Plan Potential Rehabilitation Potential Good Status of Condition at Evaluation Evolving Summary Impairments Pain,ROM,Strength,Balance, Coordination,Sensation,Tone, Cognition,Bed Mobility, Transfers,Gait,Activity Tolerance Progress Towards Goals Progressing Toward Goals Assessment Summary Pt continues to demonstrate poor motor planning with mobility, requires frequent cues for safety and is impulsive to move before therapist is ready. Gout pain in LLE remains one of his biggest obstacles to progressing to a safer and more functional gait. He required increased assist with supine to sit to Russell for LLE and increased effort for uprighting trunk to sitting position with handrails. He has poor safety awareness when attempting to sit in chair in room, leans far over to pull chair closer instead of ambulating to the chair, increasing his risk for falls. PT recommends SNF to improve functional mobility, balance and activity tolerance. Goals Bed Mobility Goal Standby Assistance Transfer Goal Contact Guard Assistance,Front Wheeled Walker Gait Goal Contact Guard Assistance,Front Wheel Walker Gait Distance 100 Other Goals improve bed mobility, transfers and ambulation ~ 200 ft mod I using 4WW Days to Meet Goals 10 Frequency of Treatment Frequency Of Treatment Once a Day Treatment Plan Physical Therapy Treatment Plan Bed Mobility Training,Transfer Training,Gait Training, Therapeutic Exercise,Balance Retraining,Post Op Education, Discharge Planning,Hot or Cold Pack,Neuromuscular Re-ed, Coordination Retraining,Manual Therapy Other Recommendations and Next Treatment Improve FWW use and gait Focus distance Weight Bearing Status Weight Bearing Status Weight Bear as Tolerated Allowed Weight Bearing Amount (enter % LLE WBAT or #) (%) Recommendations To Nursing Amount of Assist Needed 1 Person Assist Discharge Recommendations PT Discharge Recommendations SNF Rehab Equipment Needed for Home Before FWW if going home and not safe Discharge with 4WW Transportation Needs at Discharge Wheelchair/Cabulance
--- NOTE | 2022-11-04 11:02 | CM.DPNOTE ---
Addendum entered by MIGUEL ÁNGEL Pinto 11/04/22 12:52: ADD: All DC ppk including med list and PASRR has been sent to [facility] Original Note: DC Note Discharge to [facility] today, peanut picker has been scheduled for 1330 Updated son Clyde who was agreeable to plan and appreciative for the update YUDELKA Hardy and YUDLEKA Cox updated; nurse report provided. IZABELA Posey, coordinating the remainder of this discharge with Jazmine rivera [facility] Plan: Discharge to [facility] via w/c van today
--- NOTE | 2022-11-04 11:21 | ST.IPDYTX ---
Visit Care Team Role Provider Type Gareth Aguilar PA-C Primary Care Provider Non-Staff Specialty: Medical Address: [facility] [place], [address] Email: Paulino Cloud DO Emergency Provider Physician Referring Provider Specialty: Emergency Medicine Address: [address] [place] [address], [address] Email: [email or web address] Neyda Gee MD Admit Provider Physician Attending Provider Specialty: Family Practice Address: [address] [place] [address], [address] Phone: Fax: Email: [email or web address] Dysphagia Treatment ARCHEOLOGY FACULTY MEMBER Dysphagia Treatment Start: 11/04/22 11:11 Freq: Status: Active Protocol: Document 11/04/22 11:11 SEANK (Rec: 11/04/22 11:21 LNK [id number]) Dysphagia Treatment Session Time Visit Start Time 09:40 Visit Stop Time 01:55 Total Visit Minutes 15 Setting Assessment Location Acute Care Visit Type Note Type Treatment Note Patient Information Identification Type Name,ID Wristband Subjective Observations Pt was in his bed speaking with Dr. Jean. Pt to be discharged today to acute rehab. Treatment Liquids Trialed Thin Solids Trialed Mechanical Soft Administration Type Straw,Self-Feeding Pharyngeal Strategies Sitting Upright (90 deg),Small Bites and Sips Additional Dysphagia Treatment Make sure upper and lower Strategies dentures in place before meal Treatment Activities Pt was seen for swallow f/u. Pt reported no difficulty with breakfast meal. Pt did not use dentures for breakfast. Pt reported eating all of breakfast. Pt safely tolerated thin liquids via straw, self-fed. Nursing reported that pt took all of his pills without difficulty this morning. Assessment Rehab Potential Good Diet Recommendations Recommendations Continue Current Diet Comment ST to determine pt safety for diet advance when transferred to acute rehab. Liquids Order Thin Diet Order Mechanical Soft Medication Recommendations As Tolerated,Whole in Carrier, Crushed in Carrier Aspiration Precautions Recommended Precautions Upright at 90 Degrees,Small Bites/Sips,Liquids from Cup Treatment Plan Placement Recommendation after Discharge Inpatient Rehab Facility Appropriate for Continued Therapy No Therapy Recommendations Pt is safely tolerating current diet. Pt scheduled top be discharged after lunch. Recommend f/u at acute rehab with ST to determine diet advancement needs. Dysphagia Goals Pt will safely tolerate the least restrictive diet to meed nutrition and hydration needs without s/sx aspiration.
--- NOTE | 2022-11-04 13:05 | PC.NURSE ---
Called report to [facility]- gave full report on pt status. No further questions- pt packed up and ready for discharge.
--- NOTE | 2022-11-04 13:09 | OT.IP.TRT ---
Current Diagnoses Cerebral infarction, unspecified (11/01/22) Occupational Therapy Treatment Note M2 OT-IP Current Condition Start: 11/03/22 13:47 Freq: Status: Active Protocol: Document 11/03/22 13:47 CGR (Rec: 11/03/22 14:05 CGR [id number]) Occupational Therapy Current Condition Current Condition Evaluation Date 11/03/22 Treatment Diagnosis CVA after recent 10/29/22 L TKA Diagnosis Onset Date 10/29/22 Weight Bearing Status Weight Bearing Status Weight Bear as Tolerated M3 OT- IP Subjective and Pain Start: 11/03/22 13:47 Freq: Status: Active Protocol: Document 11/04/22 13:13 CCC (Rec: 11/04/22 13:22 CCC [id number]) OT- Subjective Occupational Therapy Visit Type Type Treatment Note Visit Start Time 12:54 Visit Stop Time 13:09 Total Visit Minutes 15 Occupational Therapy Visit Comments Patient Comments Pt agreed to do cognitive assessment. Patient/Caregiver Goals To get better, pt to go to skilled rehab today. M4 OT- IP ADL's Start: 11/03/22 13:47 Freq: Status: Active Protocol: Document 11/03/22 13:47 CGR (Rec: 11/03/22 14:05 CGR [id number]) OT [id number] Comments OT Self-Feeding Comments not meal time OT ADL-Grooming Comments OT Grooming Comments pt declined OT ADL-Oral Care Comments Oral Care Comments pt declined OT ADL-Dressing General Eval Lower Body Dressing Ability Total Assistance Areas Needing Assistance Socks Comments OT Dressing Comments in bed OT ADL-Toileting Comments OT Toileting Comments not performed OT ADL-Bathing Comments OT Bathing Comments not performed M5 OT- IP IADL's Start: 11/03/22 13:47 Freq: Status: Active Protocol: Document 11/03/22 13:47 CGR (Rec: 11/03/22 14:05 CGR [id number]) OT-Instrumental Activities of Daily Living Deficits IADL Deficits Identified Deficits Home Safety Awareness Awareness of Need for Assistance at Home Decreased Awareness Ability to Problem Solve Emergency Unable to Problem Solve Situations Medication Management Medication Management Comments Concerns regarding pt's ability to perform safely Money Management Money Management Comments Concerns regarding pt's ability to perform safely Meal Preparation Meal Preparation Comments Concerns regarding pt's ability to perform safely Animal Scientist Animal Scientist Comments Concerns regarding pt's ability to perform safely Driving Driving Comments Pt is unable to drive safely at this time d/t L visual field cut and difficulty with crossing midline to the left. M6 OT- IP Functional Cognition Start: 11/03/22 13:47 Freq: Status: Active Protocol: Document 11/04/22 13:13 [facility] (Rec: 11/04/22 13:22 [facility] [id number]) Cognitive Factors Limiting Selfcare Function Cognitive Ability Level of Alertness Alert Patient Orientation Name,Month,Date,Year,Day of Week,Place,Situation Attention Span Ability Capable of Focused Attention, Capable of Sustained Attention Ability to Follow Commands Able to Follow One Step Commands Memory Description Short Term Impaired,Working Impaired Cognitive Tests SLUMS Pt scored 20/30 and having difficulty to do 100-23 , able to recall 9 animals in 1 minute, able to recall 2/5 objects after time passed, not able to state 4 digit number backwards, and able to answer 3/4 questions right after paragraph read. Cognitive Comments Cognitive Assessment Comments Pt is a bit impulsive and needing cues to slow down. OT- Vision and Hearing OT- Vision Assessment Vision Assessment Comments Attempted to do [place] making and pt having to much difficulty to use his eyes to be able to find the numbers on the page at this time. M7 OT- IP Mobility and Balance Start: 11/03/22 13:47 Freq: Status: Active Protocol: Document 11/03/22 13:47 CGR (Rec: 11/03/22 14:05 CGR [id number]) OT- Bed Mobility Assessment Supine to Sit Supine to Sit Assist Standby Assistance Sit to Supine Sit to Supine Assist Minimal Assistance Scooting Scooting to Edge of Bed Independent OT-Transfer Assessment Sit to and From Stand Sit to and from Stand Standby Assistance Transfers Transfer Ability Standby Assistance Technique Transfer Destination Bed Transfer Technique Stand Step Pivot Devices Transfer Assistive Devices Gait Belt,Front Wheeled Walker Comments Mobility Comments Pt was able to stand and take steps at side of the bed. OT- Gait Assessment Comments Gait Ability Comments see P.T. note for further information OT- Balance Assessment Sitting Balance and Reactions Static Sitting Balance Ability Good Dynamic Sitting Balance Ability Fair Comments Other Balance Tests/Deviations/Treatment Pt leans to the R with sitting : balance but is able to achieve midline sitting with verbal cues. M9 OT- IP Assessment and Plan Start: 11/03/22 13:47 Freq: Status: Active Protocol: Document 11/04/22 13:13 [facility] (Rec: 11/04/22 13:22 [facility] [id number]) OT Summary Assessment and Plan Potential Rehabilitation Potential Good Analytic Complexity at Evaluation High Summary OT Impairments Pain,Strength,Balance, Coordination,Functional Cognition,Functional Mobility, Grooming,Dressing,Toileting, Bathing,Toilet Transfers, Shower Transfers,Activity Tolerance Progress Towards Goals Slow Progress due to Pain,Slow Progress due to Medical Issues,Slow Progress due to Activity Tolerance,Slow Progress due to Cognition Assessment Summary Pt still tends to lean to the right while seated in theh recliner. Pt scored 20/30 on the SLUM which implies cognitive deficits. Pt states has been having difficulty with his thinking since the CVA. Pt looking to go to skilled rehab today. Goals Self-Feeding Goal Independent Grooming Goal Independent Dressing Goal Independent Toileting Goal Independent Bathing Goal Independent Toilet Transfer Goal Independent Shower Transfer Goal Independent Days to Meet Goals 30 Frequency of Treatment Frequency Of Treatment Once a Day Treatment Plan OT Treatment Plan ADL Training,Functional Cognition Training,Functional Mobility,Neuromuscular Re- education,Therapeutic Exercises,Vision Retraining, Patient/Family Education, Discharge Planning Discharge Recommendations OT Discharge Recommendations SNF Rehab Transportation Needs at Discharge Private Vehicle,Wheelchair/ Cabulance
== END 2022-11-04 13:28 | DRG 66 ==
LOC: ED 11:25 → AC 12:28
PROVIDERS: Internal Medicine; Admitting Provider Neuromusculoskeletal Medicine, Sports Medicine; Emergency Provider Emergency Medicine; PCP Student in an Organized Health Care Education/Training Program; Referring Provider Emergency Medicine; Visit Provider Neuromusculoskeletal Medicine, Sports Medicine
DX: I63.9 Cerebral infarction, unspecified (principal); H53.462 Homonymous bilateral field defects, left side; I10 Essential (primary) hypertension; M10.9 Gout, unspecified; E03.9 Hypothyroidism, unspecified; E78.5 Hyperlipidemia, unspecified; R29.702 NIHSS score 2; R29.705 NIHSS score 5; Z87.891 Personal history of nicotine dependence; Z20.822 Contact with and (suspected) exposure to COVID-19; Z96.652 Presence of left artificial knee joint
CPT/HCPCS: 36415; 70450; 70551; 73560; 80048; 80053; 80061; 80329; 82550; 82553; 83690; 84439; 84443; 84481; 84484; 85025; 85027; 85610; 85730; 87635; 92526; 92610; 93005; 93306; 93880; 97116; 97162; 97167; 97530; 99285; C9803; G0480; J1170; J1650

== ENCOUNTER → 2023-01-07 10:18 | Outpatient (CLI) | payer MEDICARE, SELFPAY ==
[2022-11-02 13:57] VITALS: BMI 35.8
[2023-01-07 19:32] LABS: Hematocrit 42.2 % (41-53); Hemoglobin 14.4 g/dL (13.5-17.5); Mean Corpuscular HGB Conc 34.1 % (30-36); Mean Corpuscular Hemoglobin 30.8 PG (26-34); Mean Corpuscular Volume 90.3 fL (80-100); Platelet Count 223 X10^3/uL (150-400); Red Blood Cell Count 4.68 X10^6/uL (4.5-5.9); Red Cell Distribution Width 14.5 % (11.6-14.8); White Blood Cell Count 9.8 X10^3/uL (4.5-11.0)
[2023-01-07 19:41] LABS: BUN Creatinine Ratio 21.7 (6-22); Blood Urea Nitrogen 18 mg/dL (9-20); Calcium 9.6 mg/dL (8.4-10.2); Carbon Dioxide 22 mmol/L (22-32); Chloride 106 mmol/L (98-107); Estimated Glomerular Filt Rate > 60 mL/min (>60); Glucose 126 mg/dL (80-110); HEMOLYSIS 21 (0-50); Potassium 4.3 mmol/L (3.4-5.1); Sodium 139 mmol/L (137-145)
[2023-01-07 20:06] LABS: Neutrophils Absolute Manual 6762 /uL (3000-5900); Total Cells Counted 100
[2023-01-07 20:07] LABS: RBC Morphology Normal Morphology
== END ==
PROVIDERS: PCP Family Medicine; Visit Provider Family Medicine
DX: H53.462 Homonymous bilateral field defects, left side (principal); M1A.09X0 Idiopathic chronic gout, multiple sites, without tophus (tophi); I63.9 Cerebral infarction, unspecified
CPT/HCPCS: 80048; 85025

== ENCOUNTER → 2023-08-10 08:25 | Outpatient (CLI) | payer MEDICARE, SELFPAY ==
[2023-02-23 15:03] VITALS: BMI 35.8
[2023-08-10 18:45] LABS: Add Manual Diff / Slide Review NO; Basophils Absolute Auto 100 /uL (0-100); Basophils Percent Auto 1.2 % (0-2); Eosinophils Absolute Auto 700 /uL (0-450); Eosinophils Percent Auto 8.5 % (2-4); Hematocrit 49.9 % (41-53); Lymphocytes Absolute Auto 2600 /uL (1100-4500); Lymphocytes Percent Auto 31.6 % (25-40); Mean Corpuscular Hemoglobin 30.5 PG (26-34); Mean Corpuscular Volume 89.8 fL (80-100); Monocytes Absolute Auto 700 /uL (0-900); Neutrophils Absolute Auto 4100 /uL (1500-7000); Neutrophils Percent Auto 49.7 % (50-75); Platelet Count 124 X10^3/uL (150-400); Red Blood Cell Count 5.55 X10^6/uL (4.5-5.9); Red Cell Distribution Width 13.6 % (11.6-14.8); White Blood Cell Count 8.3 X10^3/uL (4.5-11.0)
[2023-08-10 18:54] LABS: Alanine Aminotransferase 36 IU/L (<50); Albumin 4.3 g/dL (3.5-5.0); Albumin Globulin Ratio 1.4 (1.0-2.8); Alkaline Phosphatase 85 U/L (38-126); Aspartate Aminotransferase 39 IU/L (17-59); BUN Creatinine Ratio 27.9 (6-22); Bilirubin Total 0.8 mg/dL (0.2-1.3); Blood Urea Nitrogen 24 mg/dL (9-20); Calcium 9.6 mg/dL (8.4-10.2); Carbon Dioxide 21 mmol/L (22-32); Chloride 108 mmol/L (98-107); Cholesterol 150 mg/dL (140-199); Estimated Glomerular Filt Rate > 60 mL/min (>60); Glucose 108 mg/dL (80-110); HDL Cholesterol 35 mg/dL (40-60); HEMOLYSIS 21 (0-50); LDL Cholesterol Calculated 70 mg/dL (<100); Potassium 4.1 mmol/L (3.4-5.1); Sodium 140 mmol/L (137-145); Total Protein 7.3 g/dL (6.3-8.2); Triglycerides 226 mg/dL (35-150); Uric Acid 8.2 mg/dL (3.5-8.5)
[2023-08-12 06:28] LABS: Labcorp Hemoglobin (Hb) A1c 6.1 % (4.8-5.6)
== END ==
PROVIDERS: PCP Family Medicine; Visit Provider Family Medicine
DX: E03.9 Hypothyroidism, unspecified; R73.09 Other abnormal glucose; M10.9 Gout, unspecified; I10 Essential (primary) hypertension; I69.30 Unspecified sequelae of cerebral infarction
CPT/HCPCS: 80053; 80061; 83036; 84550; 85025

== ENCOUNTER → 2023-11-26 09:30 | Outpatient (CLI) | payer MEDICARE, SELFPAY ==
[2023-02-23 15:03] VITALS: BMI 35.8
[2023-11-26 19:19] LABS: BUN Creatinine Ratio 26.5 (6-22); Blood Urea Nitrogen 22 mg/dL (9-20); Calcium 9.5 mg/dL (8.4-10.2); Carbon Dioxide 22 mmol/L (22-32); Chloride 112 mmol/L (98-107); Estimated Glomerular Filt Rate > 60 mL/min (>60); Glucose 118 mg/dL (80-110); HEMOLYSIS 23 (0-50); Sodium 142 mmol/L (137-145)
[2023-11-26 19:24] LABS: Add Manual Diff / Slide Review NO; Basophils Absolute Auto 100 /uL (0-100); Basophils Percent Auto 0.9 % (0-2); Eosinophils Absolute Auto 300 /uL (0-450); Eosinophils Percent Auto 4.5 % (2-4); Hemoglobin 16.1 g/dL (13.5-17.5); Lymphocytes Absolute Auto 2100 /uL (1100-4500); Lymphocytes Percent Auto 28.7 % (25-40); Mean Corpuscular HGB Conc 34.2 % (30-36); Mean Corpuscular Hemoglobin 31.7 PG (26-34); Mean Corpuscular Volume 92.6 fL (80-100); Monocytes Absolute Auto 600 /uL (0-900); Monocytes Percent Auto 8.5 % (3-14); Neutrophils Absolute Auto 4200 /uL (1500-7000); Neutrophils Percent Auto 57.4 % (50-75); Platelet Count 118 X10^3/uL (150-400); Red Blood Cell Count 5.07 X10^6/uL (4.5-5.9); Red Cell Distribution Width 14.8 % (11.6-14.8); White Blood Cell Count 7.4 X10^3/uL (4.5-11.0)
[2023-11-26 19:46] LABS: Thyroid Stimulating Hormone 3.07 uIU/mL (0.47-4.68)
== END ==
PROVIDERS: PCP Family Medicine; Visit Provider Family Medicine
DX: I10 Essential (primary) hypertension (principal); D69.6 Thrombocytopenia, unspecified; E03.9 Hypothyroidism, unspecified
CPT/HCPCS: 80048; 84443; 85025

== ENCOUNTER → 2024-04-05 11:25 | Outpatient (CLI) | payer MEDICARE, SELFPAY ==
[2023-02-23 15:03] VITALS: BMI 35.8
[2024-04-05 18:59] LABS: Add Manual Diff / Slide Review NO; Basophils Absolute Auto 100 /uL (0-100); Basophils Percent Auto 0.8 % (0-2); Eosinophils Absolute Auto 200 /uL (0-450); Eosinophils Percent Auto 3.2 % (2-4); Hematocrit 48.3 % (41-53); Hemoglobin 16.3 g/dL (13.5-17.5); Lymphocytes Absolute Auto 2500 /uL (1100-4500); Lymphocytes Percent Auto 34.6 % (25-40); Mean Corpuscular HGB Conc 33.7 % (30-36); Mean Corpuscular Hemoglobin 31.6 PG (26-34); Monocytes Absolute Auto 500 /uL (0-900); Monocytes Percent Auto 7.3 % (3-14); Neutrophils Absolute Auto 4000 /uL (1500-7000); Neutrophils Percent Auto 54.1 % (50-75); Platelet Count 184 X10^3/uL (150-400); Red Blood Cell Count 5.14 X10^6/uL (4.5-5.9); Red Cell Distribution Width 14.2 % (11.6-14.8); White Blood Cell Count 7.4 X10^3/uL (4.5-11.0)
[2024-04-05 20:27] LABS: Alanine Aminotransferase 36 IU/L (<50); Albumin 4.6 g/dL (3.5-5.0); Albumin Globulin Ratio 1.6 (1.0-2.8); Alkaline Phosphatase 82 U/L (38-126); Aspartate Aminotransferase 35 IU/L (17-59); BUN Creatinine Ratio 25.2 (6-22); Bilirubin Total 0.6 mg/dL (0.2-1.3); Blood Urea Nitrogen 29 mg/dL (9-20); C-Reactive Protein Quant < 0.5 mg/dL (<1.0); Calcium 10.1 mg/dL (8.4-10.2); Carbon Dioxide 21 mmol/L (22-32); Chloride 109 mmol/L (98-107); Erythrocyte Sedimentation Rate 4 MM/HR (0-15); Estimated Glomerular Filt Rate > 60 mL/min (>60); Globulin 2.8 g/dL (1.7-4.1); Glucose 126 mg/dL (80-110); HEMOLYSIS < 15 (0-50); Potassium 4.5 mmol/L (3.4-5.1); Sodium 140 mmol/L (137-145); Total Protein 7.4 g/dL (6.3-8.2)
[2024-04-05 20:49] LABS: Hemoglobin A1C% w Est Avg Glu 5.5 % (4.0-6.0)
== END ==
PROVIDERS: PCP Family Medicine; Visit Provider Family Medicine
DX: M54.50 Low back pain, unspecified (principal); R73.09 Other abnormal glucose; D69.6 Thrombocytopenia, unspecified; I10 Essential (primary) hypertension
CPT/HCPCS: 80053; 83036; 83883; 84155; 84165; 85025; 85651; 86140

== ENCOUNTER → 2024-09-12 09:05 | Outpatient (CLI) | payer MEDICARE, SELFPAY ==
[2023-02-23 15:03] VITALS: BMI 35.8
[2024-09-12 19:32] LABS: Add Manual Diff / Slide Review NO; Basophils Absolute Auto 100 /uL (0-100); Basophils Percent Auto 0.9 % (0-2); Eosinophils Absolute Auto 300 /uL (0-450); Eosinophils Percent Auto 4.2 % (2-4); Hematocrit 48.6 % (41-53); Hemoglobin 16.6 g/dL (13.5-17.5); Lymphocytes Absolute Auto 3000 /uL (1100-4500); Lymphocytes Percent Auto 37.5 % (25-40); Mean Corpuscular HGB Conc 34.1 % (30-36); Mean Corpuscular Hemoglobin 31.9 PG (26-34); Mean Corpuscular Volume 93.6 fL (80-100); Monocytes Absolute Auto 700 /uL (0-900); Neutrophils Absolute Auto 3900 /uL (1500-7000); Neutrophils Percent Auto 48.4 % (50-75); Platelet Count 202 X10^3/uL (150-400); Red Blood Cell Count 5.19 X10^6/uL (4.5-5.9); Red Cell Distribution Width 14.5 % (11.6-14.8)
[2024-09-12 19:42] LABS: Alanine Aminotransferase 40 IU/L (<50); Albumin 4.7 g/dL (3.5-5.0); Albumin Globulin Ratio 1.6 (1.0-2.8); Alkaline Phosphatase 91 U/L (38-126); Aspartate Aminotransferase 48 IU/L (17-59); BUN Creatinine Ratio 17.9 (6-22); Bilirubin Total 0.8 mg/dL (0.2-1.3); Blood Urea Nitrogen 17 mg/dL (9-20); Calcium 10.3 mg/dL (8.4-10.2); Carbon Dioxide 20 mmol/L (22-32); Chloride 107 mmol/L (98-107); Cholesterol 181 mg/dL (140-199); Estimated Glomerular Filt Rate > 60 mL/min (>60); Glucose 120 mg/dL (80-110); HDL Cholesterol 31 mg/dL (40-60); HEMOLYSIS 19 (0-50); LDL Cholesterol Calculated 73 mg/dL (<100); Potassium 4.5 mmol/L (3.4-5.1); Sodium 140 mmol/L (137-145); Total Protein 7.7 g/dL (6.3-8.2); Triglycerides 387 mg/dL (35-150)
[2024-09-12 19:46] LABS: Hemoglobin A1C% w Est Avg Glu 5.2 % (4.0-6.0)
[2024-09-12 20:12] LABS: Thyroid Stimulating Hormone 5.53 uIU/mL (0.47-4.68)
[2024-09-12 20:23] LABS: Testosterone 829 ng/dL (71.8-623)
== END ==
PROVIDERS: PCP Family Medicine; Visit Provider Family Medicine
DX: I10 Essential (primary) hypertension (principal); R73.09 Other abnormal glucose; I69.30 Unspecified sequelae of cerebral infarction; E78.2 Mixed hyperlipidemia; E66.01 Morbid (severe) obesity due to excess calories; I35.0 Nonrheumatic aortic (valve) stenosis; N52.9 Male erectile dysfunction, unspecified
CPT/HCPCS: 80053; 80061; 83036; 84403; 84443; 85025

== ENCOUNTER → 2024-12-20 10:27 | Outpatient (CLI) | payer MEDICARE, SELFPAY ==
[2023-02-23 15:03] VITALS: BMI 35.8
[2024-12-20 20:02] LABS: Thyroid Stimulating Hormone 3.71 uIU/mL (0.47-4.68)
== END ==
PROVIDERS: PCP Family Medicine; Visit Provider Family Medicine
DX: E83.52 Hypercalcemia (principal); E03.9 Hypothyroidism, unspecified
CPT/HCPCS: 82310; 83970; 84443

== ENCOUNTER → 2025-05-01 11:29 | Outpatient (CLI) | payer MEDICARE, SELFPAY ==
[2025-04-18 14:22] VITALS: BMI 35.8
== END ==
LOC: WC 11:32
PROVIDERS: Family Provider Family Medicine; PCP Family Medicine; Referring Provider Family Medicine; Visit Provider Surgery
DX: S81.812A Laceration without foreign body, left lower leg, initial encounter (principal); L53.8 Other specified erythematous conditions; R60.0 Localized edema; E66.9 Obesity, unspecified
CPT/HCPCS: 11042; 87070; 87075; 87205; 99203; 99214

== ENCOUNTER → 2025-05-08 13:05 | Outpatient (CLI) | payer MEDICARE, SELFPAY ==
[2025-04-18 14:22] VITALS: BMI 35.8
== END ==
LOC: WC 13:06
PROVIDERS: Family Provider Family Medicine; PCP Family Medicine; Referring Provider Family Medicine; Visit Provider Surgery
DX: S81.812A Laceration without foreign body, left lower leg, initial encounter (principal); R60.0 Localized edema; Z87.891 Personal history of nicotine dependence
CPT/HCPCS: 11042; 97605

== ENCOUNTER → 2025-05-10 11:22 | Outpatient (CLI) | payer MEDICARE, SELFPAY ==
[2025-04-18 14:22] VITALS: BMI 35.8
== END ==
PROVIDERS: Family Provider Family Medicine; PCP Family Medicine; Referring Provider Family Medicine; Visit Provider Surgery
DX: S81.802A Unspecified open wound, left lower leg, initial encounter (principal); L53.8 Other specified erythematous conditions; R60.0 Localized edema
CPT/HCPCS: 97605

== ENCOUNTER → 2025-05-10 11:37 | Outpatient (CLI) | payer MEDICARE, OTHER, SELFPAY ==
[2025-04-18 14:22] VITALS: BMI 35.8
--- NOTE | 2025-05-10 11:38 | DI.US.S_ITS ---
PROCEDURE: US ARTERIAL DUPLEX LE LT
== END ==
PROVIDERS: Family Provider Family Medicine; PCP Family Medicine; Referring Provider Surgery; Visit Provider Surgery
DX: I70.202 Unspecified atherosclerosis of native arteries of extremities, left leg (principal); L98.499 Non-pressure chronic ulcer of skin of other sites with unspecified severity
CPT/HCPCS: 93926

== ENCOUNTER → 2025-05-15 10:28 | Outpatient (CLI) | payer MEDICARE, OTHER, SELFPAY ==
[2025-04-18 14:22] VITALS: BMI 35.8
== END ==
LOC: WC 10:44
PROVIDERS: Family Provider Family Medicine; PCP Family Medicine; Referring Provider Family Medicine; Visit Provider Surgery
DX: S81.812A Laceration without foreign body, left lower leg, initial encounter (principal); L53.8 Other specified erythematous conditions; R60.0 Localized edema
CPT/HCPCS: 11042; 97605

== ENCOUNTER → 2025-05-22 10:43 | Outpatient (CLI) | payer MEDICARE, OTHER, SELFPAY ==
[2025-04-18 14:22] VITALS: BMI 35.8
== END ==
LOC: WC 10:49
PROVIDERS: Family Provider Family Medicine; PCP Family Medicine; Referring Provider Family Medicine; Visit Provider Surgery
DX: S81.812A Laceration without foreign body, left lower leg, initial encounter (principal); L02.416 Cutaneous abscess of left lower limb; L53.8 Other specified erythematous conditions; R60.0 Localized edema; Z79.01 Long term (current) use of anticoagulants
CPT/HCPCS: 10060; 11042; 87070; 87205; 99213

== ENCOUNTER → 2025-05-29 10:43 | Outpatient (CLI) | payer MEDICARE, OTHER, SELFPAY ==
[2025-04-18 14:22] VITALS: BMI 35.8
== END ==
LOC: WC 10:46
PROVIDERS: Family Provider Family Medicine; PCP Family Medicine; Referring Provider Family Medicine; Visit Provider Surgery
DX: S81.802A Unspecified open wound, left lower leg, initial encounter (principal); L02.416 Cutaneous abscess of left lower limb; R60.0 Localized edema; L53.8 Other specified erythematous conditions; Z87.891 Personal history of nicotine dependence
CPT/HCPCS: 10060; 11042; 99213

== ENCOUNTER → 2025-06-05 11:03 | Outpatient (CLI) | payer MEDICARE, OTHER, SELFPAY ==
[2025-04-18 14:22] VITALS: BMI 35.8
== END ==
LOC: WC 11:17
PROVIDERS: Family Provider Family Medicine; PCP Family Medicine; Referring Provider Family Medicine; Visit Provider Surgery
DX: I96 Gangrene, not elsewhere classified (principal); S81.812A Laceration without foreign body, left lower leg, initial encounter; L02.416 Cutaneous abscess of left lower limb; L98.8 Other specified disorders of the skin and subcutaneous tissue; L53.9 Erythematous condition, unspecified; R60.0 Localized edema; W19.XXXA Unspecified fall, initial encounter; E66.9 Obesity, unspecified; Z68.39 Body mass index [BMI] 39.0-39.9, adult; I10 Essential (primary) hypertension; Z79.01 Long term (current) use of anticoagulants; Z87.891 Personal history of nicotine dependence; Z86.73 Personal history of transient ischemic attack (TIA), and cerebral infarction without residual deficits
CPT/HCPCS: 11042